=== PATIENT | male | born 1945 | race Caucasian/White ===

== ENCOUNTER 2017-10-28 13:00 | Emergency (ER) | payer OTHER ==
[~2017-10-28 13:00] MED LIST: ISOVUE-370 76%-LOCM 1 ML ONE
[2017-10-28] MEDS ORDERED: HYDROcodone/Acetaminophen 5/325 mg Tablet ONE (13:40)
[2017-10-28 14:35] LABS: #Eosinphils 0.2 thou/uL (0.0-0.7); #Monocytes 0.4 thou/uL (0.11-0.59); #Neutrophils 2.9 thou/uL (1.40-6.50); %Basophils 1.1 % (0.0-1.0); %Eosinophils 3.7 % (0.0-10.0); %Lymphocytes 22.1 % (21.0-51.0); %Monocytes 8.2 % (0.0-10.0); Hemoglobin 12.1 g/dL (14.0-18.0); Mean Corpuscular HGB CONC 34.3 g/dL (32.0-36.0); Mean Corpuscular Hemoglobin 30.1 pg (27.0-31.0); Mean Corpuscular Volume 87.9 fl (80.0-94.0); Mean Platelet Volume 8.2 fL (7.4-10.4); Platelet Count 158 thou/uL (130-400); RBC Distribution Width 12.2 % (11.5-14.5); White Blood Cell (WBC) Count 4.4 thou/uL (4.8-10.8)
[2017-10-28 14:58] LABS: ALT (SGPT) 15 U/L (8-55); AST (SGOT) 14 U/L (5-34); Albumin 3.6 g/dL (3.4-4.8); Alkaline Phosphatase 111 U/L (40-150); Anion Gap 9 mmol/L (10-20); BUN (Urea Nitrogen) 18 mg/dL (8.4-25.7); Bilirubin, Total 0.5 mg/dL (0.2-1.2); Calc. Creatinine Clearance 0 mL/min (70-130); Calcium 8.8 mg/dL (7.8-10.44); Carbon Dioxide 26 mmol/L (23-31); Chloride 106 mmol/L (98-107); Estimated GFR-MDRD 55; Globulin 2.8 g/dL (2.4-3.5); Glucose 128 mg/dL (83-110); Potassium 4.4 mmol/L (3.5-5.1); Protein, Total 6.4 g/dL (5.8-8.1); Sodium 137 mmol/L (136-145)
--- NOTE | 2017-10-28 15:56 | CT ---
POSTCONTRAST FACE CT: HISTORY: Tooth removed on 10/22. The patient reports pain and swelling. Evaluate for possible abscess. COMPARISON: None. TECHNIQUE: Face CT is performed in the axial plane. Reformatted images are submitted for interpretation. FINDINGS: The visualized brain parenchyma is unremarkable. No pathologic enhancement. Bilateral globes are in tact. Retrobulbar fat is preserved. Symmetric attenuation of the optic nerves and ocular rectus mus cles. There is extensive hypodensity involving the left and right ethmoid air cells and nasal cavity. Abno rmal hypodensity extends into both frontal sinuses. The cribiform plate appears to have erosive arellano ges versus demineralization. The aforementioned findings may be due to infectious, inflammatory proc ess. An underlying neoplastic process cannot be completely excluded. Obvious intracranial extension is not appreciated. Better interrogation with nonemergent brain MRI and ENT consultation is recomme nded. There is mucosal disease involving both maxillary sinuses. Pterygopalatine fossas are patent and symmetric. Visualized aerodigestive tract is patent. No mucos al abnormality. Midline fatty raphe of the tongue is preserved. There is no prevertebral soft tissu e swelling. Epiglottis has a normal caliber. Preepiglottic fat is preserved. Symmetric attenuation of the muscles of the mastication, submandibular glands, and parotid gland. No evidence of a soft tissue abscess. No significant induraiton or swelling of the facial soft tissu es. Mixed attenuation mass is noted posterior and lateral to the supraglottic larynx. Evaluation is inco mplete. There is evidence of absent multiple maxillary molar teeth. There is a small focus of air a a left m axillary molar tooth, like due to recent extraction. The air is in the socket and is presumed to be post operative. The mandibular teeth are intact. IMPRESSION: 1. No evidence of periapical abscess. No evidence of periodontal disease/periodontal abscess. No e vidence of soft tissue abscess. There is air in the left molar tooth socket and is presumed to be du e to recent extraction. 2. Heterogeneous mass, incompletely evaluated posterior and lateral to the supraglottic larynx. Non emergent postcontrast soft tissue neck CT is recommended. 3. Abnormal attenuation occupying the nasal cavity as above. There is possible demineralization phani kt erosion of the mid portion of the cribriform plates. Nonemergent MRI is recommended. Results of the study discussed with Xiao Cedeno, 10/28/17 at 3:39 p.m. CODE CR POS: KENYA
== END 2017-10-28 16:59 | disposition home or self-care (01) ==
LOC: ERS 13:00
DX: K08.89 Other specified disorders of teeth and supporting structures (principal); E11.9 Type 2 diabetes mellitus without complications; I10 Essential (primary) hypertension; Z87.891 Personal history of nicotine dependence; Z79.899 Other long term (current) drug therapy; Z79.82 Long term (current) use of aspirin
CPT/HCPCS: 36415; 70487; 80053; 85025

== ENCOUNTER 2017-12-06 07:33 | Outpatient (CLI) | payer OTHER ==
--- NOTE | 2017-12-06 08:33 | ULT ---
THYROID SONOGRAM: HISTORY: Neck mass. Thyromegaly. FINDINGS: Each thyroid lobe is 5.9 cm. The isthmus is 0.8 cm. There is marked heterogeneity of the entirety o f the thyroid gland. Multiple lobular complex masses are present throughout each thyroid lobe. On t he left, the largest is at the inferior pole measuring up to 3.3 cm. The largest on the right is at the superior pole measuring up to 1.8 cm. IMPRESSION: Multinodular goiter. POS: KENYA
== END 2017-12-06 07:34 | disposition home or self-care (01) ==
LOC: ULT 07:33
PROVIDERS: ATTEND Specialist
DX: E04.9 Nontoxic goiter, unspecified (principal); E04.2 Nontoxic multinodular goiter
CPT/HCPCS: 76536

== ENCOUNTER 2018-01-29 11:06 | Outpatient (CLI) | payer OTHER | END 2018-01-29 11:07 | disposition home or self-care (01) | LOC: BICRAD 11:06 | PROVIDERS: ATTEND Nurse Practitioner Family | DX: I27.20 Pulmonary hypertension, unspecified (principal) | CPT/HCPCS: 36415; 71046; 83520; 86038; 86200; 86225; 86235; 86256 ==

== ENCOUNTER 2018-02-18 12:33 | Outpatient (CLI) | payer OTHER ==
--- NOTE | 2018-02-18 15:06 | ULT ---
BILATERAL LOWER EXTREMITY VENOUS ULTRASOUND WITH DOPPLER 02/18/18 HISTORY: Varicose veins. COMPARISON: None. TECHNIQUE: Guardado scale, color flow, doppler imaging with spectral waveform analysis performed in the left and rig ht lower extremity venous system. FINDINGS: Bilaterally, there is compressibility, presence of flow and augmentation in the common femoral vein, femoral vein, and popliteal veins. There is flow in bilateral greater saphenous veins, profunda veins , and posterior tibial veins. IMPRESSION: No evidence of thrombus in the left or right lower extremity deep venous system. POS: KENYA
--- NOTE | 2018-02-21 09:54 | ULT ---
BILATERAL LOWER EXTREMITY ARTERIAL ULTRASOUND: Date: 02/18/18 Bilateral lower extremity arterial ultrasound was performed. On the right, femoral waveform is triphasic with good peak area under the curve. Popliteal and dispensary clerk ior tibial artery waveforms are triphasic with slight diminution in their waveforms peaks. Dorsalis p sincere waveform is back at a normal peaked waveform with triphasic wave. Ankle brachial index is 1.04. On the left, femoral, popliteal, dorsalis pedis, and posterior tibial artery waveforms are nicely pea ked with good peak area. Ankle brachial index is 0.95. ASSESSMENT: Mild SFA/popliteal disease on the right with normal ankle brachial index. Normal study on the left.
== END 2018-02-18 12:34 | disposition home or self-care (01) ==
LOC: ULT 12:33
PROVIDERS: ATTEND Internal Medicine
DX: I73.9 Peripheral vascular disease, unspecified (principal); I83.893 Varicose veins of bilateral lower extremities with other complications
CPT/HCPCS: 93922; 93970

== ENCOUNTER 2018-02-21 06:31 | Day surgery (SDC) | payer OTHER ==
[2018-02-20 11:17] VITALS: BMI 30.4
--- NOTE | 2018-02-21 02:31 | HP ---
SHORT STAY HISTORY AND PHYSICAL DATE OF ADMISSION: 02/21/2018 HISTORY OF PRESENT ILLNESS: Mr. Yvonne Bergman is a 72-year-old male referred in for colonoscopy for colon cancer screening. The patient has never had a colonoscopy. The patient has no specific GI symptoms. His bowel movement is regular. There is no history of rectal bleeding or melena. ALLERGIES: None. SOCIAL HISTORY: The patient is a former smoker. . Alcohol intake. MEDICAL ILLNESSES: 1. Bronchial asthma. 2. Benign prostatic hypertrophy. 3. Coronary artery disease, status post stent placement. 4. Obesity. 5. Hypertension. 6. Hyperlipidemia. 7. Diabetes. 8. Glaucoma. 9. Multinodular goiter. PHYSICAL EXAMINATION: GENERAL: Appears comfortable. VITAL SIGNS: Pulse is 70, blood pressure 130/70. HEENT: Conjunctivae clear. CARDIOVASCULAR SYSTEM: First and second heart sounds normal. LUNGS: Clear to auscultation. ABDOMEN: Soft to palpate. No organomegaly. No tenderness. No masses. ADMITTING DIAGNOSIS: A 72-year-old male with mild anemia. He has no upper GI symptoms. The patient comes for colonoscopy for colon cancer screening. GONZALEZ
--- NOTE | 2018-02-21 09:32 | OP ---
DATE OF PROCEDURE: 02/21/2018 SURGEON: Vanesa Renner M.D. OPERATIVE PROCEDURE: 1. Colonoscopy with polypectomy. 2. Colonoscopy with biopsy. PREOPERATIVE DIAGNOSES: A 72-year-old male with a mild anemia undergoing colonoscopy for colon cance r screening. POSTOPERATIVE DIAGNOSES: 1. Sessile cecal polyp removed with biopsy forceps. 2. A sessile distal transverse colon polyp close to the splenic flexure, status post snare cautery w ith good hemostasis. 3. Sessile sigmoid polyp, status post snare cautery with good hemostasis. 4. Sessile sigmoid polyp at 25 cm, status post snare cautery with good hemostasis. 5. Mild sigmoid diverticular disease. 6. Hemorrhoids. PROCEDURE IN DETAIL: The patient was placed on his left lateral position and was given sedation by A nesthesia Department. A rectal exam was done before the scope was advanced into the rectum. No othe r lesion felt on rectal exam. A Pentax video colonoscope was introduced into the rectum and advanced all the way into the cecum. The prep was good. The appendical orifice, ileocecal valve, no patholo gy. A 5 cm size sessile polyp cecum removed. The ascending colon, hepatic flexure, proximal transve rse colon, no pathology seen. Over the distal transverse colon close to splenic flexure the patient found to have a sessile polyp. This was removed with snare cautery with good hemostasis. There were 2 polyps in the sigmoid colon. Both were sessile and both were removed with snare cautery with good hemostasis. He also had mild sigmoid diverticular disease. Retroflexion of the scope in the rectum showed hemorrhoids. DISCHARGE PLANNING: A 72-year-old male who came for a colonoscopy for colon cancer screening. He un derwent polypectomy. There were 4 polyps removed. DISCHARGE RECOMMENDATIONS: 1. The patient was advised to call me if he develops abdominal pain, hematochezia or fever. 2. To come back to clinic in 2 weeks.
== END 2018-02-21 11:03 | disposition home or self-care (01) ==
LOC: SDC 06:31
PROVIDERS: ATTEND Internal Medicine Gastroenterology
PROC: 0DBH8ZX Excision of Cecum, Via Natural or Artificial Opening Endoscopic, Diagnostic (ICD-10-PCS; principal; 2018-02-21)
PROC: 0DBN8ZX Excision of Sigmoid Colon, Via Natural or Artificial Opening Endoscopic, Diagnostic (ICD-10-PCS; principal; 2018-02-21)
PROC: 0DBL8ZX Excision of Transverse Colon, Via Natural or Artificial Opening Endoscopic, Diagnostic (ICD-10-PCS; principal; 2018-02-21)
DX: D64.9 Anemia, unspecified (principal); D12.0 Benign neoplasm of cecum; D12.5 Benign neoplasm of sigmoid colon; D12.3 Benign neoplasm of transverse colon; K63.5 Polyp of colon; K57.30 Diverticulosis of large intestine without perforation or abscess without bleeding; K64.9 Unspecified hemorrhoids; J45.909 Unspecified asthma, uncomplicated; I25.10 Atherosclerotic heart disease of native coronary artery without angina pectoris; I10 Essential (primary) hypertension; E78.5 Hyperlipidemia, unspecified; E11.9 Type 2 diabetes mellitus without complications; E66.9 Obesity, unspecified; Z68.30 Body mass index [BMI] 30.0-30.9, adult; Z79.82 Long term (current) use of aspirin; Z79.84 Long term (current) use of oral hypoglycemic drugs; Z79.899 Other long term (current) drug therapy; Z95.5 Presence of coronary angioplasty implant and graft
CPT/HCPCS: 36416; 88305

== ENCOUNTER 2018-03-06 10:33 | Day surgery (SDC) | payer OTHER ==
[2018-03-05 11:19] VITALS: BMI 30.5
[2018-03-06] MEDS ORDERED: Oxymetazoline HCl 0.05% ( 15 ML ) ONE ×3 (11:44→15:52)
[2018-03-06 11:56] LABS: Hemoglobin 13.5 g/dL (14.0-18.0)
[2018-03-06] MEDS ORDERED: Fentanyl 100 MCG/2 ML VIAL ONE ×3 (12:16→13:57)
[2018-03-06] MEDS ORDERED: Lidocaine 1% w/Epinephrine 1:100K 30 ML VIAL ONE (12:17)
[2018-03-06 12:19] LABS: Anion Gap 10 mmol/L (10-20); BUN (Urea Nitrogen) 15 mg/dL (8.4-25.7); Calc. Creatinine Clearance 69 mL/min (70-130); Calcium 9.6 mg/dL (7.8-10.44); Carbon Dioxide 29 mmol/L (23-31); Chloride 103 mmol/L (98-107); Estimated GFR-MDRD 60; Glucose 173 mg/dL (83-110); Potassium 4.6 mmol/L (3.5-5.1); Sodium 137 mmol/L (136-145)
[2018-03-06] MEDS ORDERED: Albuterol Sulfate 2.5 mg/3 ml Neb ONE (12:28)
[2018-03-06] MEDS ORDERED: Albuterol Sulfate 1.25 MG/3 ML NEB NEB SCH (12:30)
[2018-03-06] MEDS ORDERED: methylPREDNISolone Acetate 40 mg/ml Vial ONE (12:58)
--- NOTE | 2018-03-06 13:37 | OP ---
DATE OF PROCEDURE: 03/06/2018 PREOPERATIVE DIAGNOSES: Nasal polyposis, allergic fungal sinusitis, deviated septum, hypertrophic in ferior turbinates. POSTOPERATIVE DIAGNOSES: Nasal polyposis, allergic fungal sinusitis, deviated septum, hypertrophic i nferior turbinates. PROCEDURES PERFORMED: 1. Bilateral nasal endoscopy with maxillary antrostomy with removal of tissue. 2. Bilateral nasal endoscopy with total ethmoidectomy. 3. Bilateral nasal endoscopy with frontal sinusotomy. 4. Bilateral nasal endoscopy with sphenoidotomy with removal of tissue. 5. Bilateral nasal endoscopy with nasal polypectomy. 6. Septoplasty. 7. Bilateral nasal endoscopy with submucosal resection of inferior turbinates. PROCEDURE IN DETAIL: After consent was obtained, the patient was identified, brought to the operatin g room, and placed on the operating room table in the supine position. Consent was obtained, notifyi ng the patient of the possibility of additional infections, bleeding, brain injury, and eye/orbital i njury. The patient was placed on the operating room table, and general endotracheal anesthesia and intravenous access was obtained. The patient was then positioned, prepped and draped for endoscopic sinus surgery. Nasal preparation included trimming nasal vestibular hairs and spraying in topical Af rin. We then placed Afrin topical solution on nasal pledgets and strategically located them intranas ally. The perinasal mucosa was injected with 1% lidocaine with 1:100,000 epinephrine in the submucop erichondrial plane of the septum, lateral nasal wall, and anterior to the uncinate. The patient was then prepped and draped in a sterile fashion and positioned for endoscopic sinus surgery. (Endoscopic Sinus Surgery) With the 0-degree endoscope, the patient underwent systematic nasal endoscopy. There were no suspici ous internasal masses or lesions identified. We then focused our attention to the osteomeatal comple x region under the middle turbinate. (Bernie Bullosa) The bernie bullosa was identified and entered with a sickle blade. The lateral aspect of the bernie bullosa was meticulously resected while leaving the medial most aspect t o form the new middle turbinate. Attention was made not to violate the mucosa. The straight biting punches and micro-debrider were used to remove shrouds of mucosa and bony debris. (Maxillary Antrostomy) The uncinate was then identified and the extent of the uncinate was appreciated by out-fracturing the uncinate with the ball-tip probe. We then used the sickle blade to disarticulate the uncinate from the lateral nasal wall. This was then removed with straight biting and upbiting punches with the remaining shrouds of mucosa and bony septum removed with the micro-debr ider. The natural os of the maxillary sinus was then identified and enlarged with the maxillary punc hes and back biting forceps. (Total Ethmoidectomy) The anterior face of the ethmoid bulla was entered and with the micro-debrider, dissection continued posteriorly to the ground lamella. The limits of dissection inc luded the insertion of the middle turbinate, medial orbital wall, and base of skull. We similarly id entified the frontal recess and removed shrouds of bone and debris in that region to obtain patency i nto the agger nasi region and frontal recess. We then entered the ground lamella and its anteroinfer ior aspect and proceeded posteriorly, opening the posterior ethmoid air-cell system. Again, the limi ts of dissection included the base of skull and medial orbital wall. (Sphenoidotomy) The anterior face of the sphenoid was identified and entered in its extreme anteroinferior aspect. A sphenoid punch was then used to enlarge the sphenoidotomy and no injury to the optic nerve or internal carotid artery occurred. (Outfracture of the Inferior Turbinates) The inferior turbinates were visualized under endoscopic visualization and outfractured with the elevator. The inferolateral edge of the inferior turbinate was then cauterized along its length with the suction cautery without difficulty. (Outfracture & Cautery of the Inferior Turbinates) The inferior turbinates were visualized with a 0-degree endoscope and outfractured with a [place] elevator. The inferior medial aspect was cauterized with the electrocauter y. Hemostasis was obtained . After adequate airway was established, we turned our attention to the contralateral side and used a similar procedure. Again, a Dolores elevator was used to outfracture inf erior turbinates under endoscopic visualization. With a suction cautery, the free inferior medial as pect was cauterized under direct visualization along the length of the inferior turbinate. (Septoplasty) After local anesthesia was infiltrated into the submucoperichondrial plane, a standard [place] incisi on was made with a #15 blade down to the level of the septal cartilage. The caudal elevator was used to elevate the mucoperichondrium from the underlying cartilage. We then proceeded beyond the bony c artilaginous junction and elevated the bony periosteum as well. Great attention was paid to the spur to prevent rent formation in the septal flap. A transcartilaginous incision was then made, while pre serving an adequate dorsal and caudal cartilaginous strut for tip support. The deformed cartilage wa s removed and disarticulated from the bony cartilaginous junction and maxillary crest. This was plac ed in saline and would later be crushed and returned to the mucoperichondrial envelope. We then elev ated the contralateral periosteum from the bony cartilaginous region and removed the deformed portion s of the bone and bony spurs. The cartilage was then crushed and placed back into the mucoperichondr ial envelope and the mucosa was re-approximated with a quilting stitch composed of rapidly absorbent gut suture. The Magdy incision was also closed with interrupted gut suture. At the completion of the case, Armstrong splints were placed and suture secured to the caudal septum. At this point, we then turned our attention to the contralateral side and proceeded with endoscopic sinus surgery. At the completion of the case, Rice keel splints were placed in the ethmoid cavities after the ethmoidectomy. There were no complications. The patient tolerated the procedure well and was discharged to the recovery room in stable condition prior to return to the preoperative Day Stay with ultimate discharge home. Prescriptions for pain medication and antibiotics were provid ed. The patient received intramuscular Depo-Medrol during the case.
[2018-03-06] MEDS ORDERED: Ondansetron HCl/PF 4 MG/2 ML Vial ONE (14:27)
[2018-03-06] MEDS ORDERED: Lidocaine 1% PF 5 ML VIAL ONE (14:27)
[2018-03-06] MEDS ORDERED: Succinylcholine Chloride 20 MG/ML 10 ml SYRINGE FS ONE (14:27)
[2018-03-06] MEDS ORDERED: Dexamethasone 20 MG/5 ML VIAL ONE (14:27)
[2018-03-06] MEDS ORDERED: PROPOFOL 200 MG/20 ML VIAL ONE (14:27)
[2018-03-06] MEDS ORDERED: HYDROcodone/Acetaminophen 5/325 mg Tablet ONE (15:03)
--- NOTE | 2018-03-09 20:55 | EKG ---
Test Reason : PREOP Blood Pressure : / mmHG Vent. Rate : 079 BPM Atrial Rate : 079 BPM P-R Int : 148 ms QRS Dur : 096 ms QT Int : 366 ms P-R-T Axes : 043 033 081 degrees QTc Int : 419 ms Normal sinus rhythm Normal ECG No previous ECGs available Confirmed by Willie CHAIDEZ ([id number]) on 03/09/2018 8:54:58 PM Referred By: RAFAELA Confirmed By:Willie CHAIDEZ
== END 2018-03-06 16:00 | disposition home or self-care (01) ==
LOC: SDC 10:33
PROVIDERS: ATTEND Specialist
PROC: 09TV8ZZ Resection of Left Ethmoid Sinus, Via Natural or Artificial Opening Endoscopic (ICD-10-PCS; principal; 2018-03-06)
PROC: 09TU8ZZ Resection of Right Ethmoid Sinus, Via Natural or Artificial Opening Endoscopic (ICD-10-PCS; principal; 2018-03-06)
PROC: 09SL8ZZ Reposition Nasal Turbinate, Via Natural or Artificial Opening Endoscopic (ICD-10-PCS; principal; 2018-03-06)
PROC: 09BR8ZZ Excision of Left Maxillary Sinus, Via Natural or Artificial Opening Endoscopic (ICD-10-PCS; principal; 2018-03-06)
PROC: 09SM0ZZ Reposition Nasal Septum, Open Approach (ICD-10-PCS; principal; 2018-03-06)
PROC: 099X8ZZ Drainage of Left Sphenoid Sinus, Via Natural or Artificial Opening Endoscopic (ICD-10-PCS; principal; 2018-03-06)
PROC: 09BQ8ZZ Excision of Right Maxillary Sinus, Via Natural or Artificial Opening Endoscopic (ICD-10-PCS; principal; 2018-03-06)
PROC: 099W8ZZ Drainage of Right Sphenoid Sinus, Via Natural or Artificial Opening Endoscopic (ICD-10-PCS; principal; 2018-03-06)
PROC: 09TL8ZZ Resection of Nasal Turbinate, Via Natural or Artificial Opening Endoscopic (ICD-10-PCS; principal; 2018-03-06)
DX: J32.9 Chronic sinusitis, unspecified (principal); J34.2 Deviated nasal septum; J34.3 Hypertrophy of nasal turbinates; J33.9 Nasal polyp, unspecified; J30.89 Other allergic rhinitis; I25.10 Atherosclerotic heart disease of native coronary artery without angina pectoris; I10 Essential (primary) hypertension; N40.0 Benign prostatic hyperplasia without lower urinary tract symptoms; J45.40 Moderate persistent asthma, uncomplicated; E11.9 Type 2 diabetes mellitus without complications; E04.9 Nontoxic goiter, unspecified; Z79.82 Long term (current) use of aspirin; Z79.84 Long term (current) use of oral hypoglycemic drugs; Z79.899 Other long term (current) drug therapy
CPT/HCPCS: 36415; 80048; 85014; 85018; 93005; 93010; 94640; J1030; J1100; J2001; J2405; J2704; J3010; J7611

== ENCOUNTER 2019-03-19 20:30 | Outpatient (CLI) | payer OTHER | END 2019-03-19 20:31 | disposition home or self-care (01) | LOC: SLEEPLAB 20:30 | PROVIDERS: ATTEND Internal Medicine | DX: G47.33 Obstructive sleep apnea (adult) (pediatric) (principal) | CPT/HCPCS: 95810 ==

== ENCOUNTER 2019-08-10 12:53 | Outpatient (CLI) | payer OTHER ==
--- NOTE | 2019-08-10 14:15 | ULT ---
RENAL ULTRASOUND WITH DUPLEX EVALUATION HISTORY: Chronic kidney disease stage III COMPARISON: None FINDINGS: Grayscale, color Doppler spectral Doppler images were obtained. Right Kidney: Size: 10.2 x 5.8 x 6.3. Right renal cortical thickness was 1.6 cm. Abnormality: There are multiple right renal cysts. When the largest cyst is seen measuring 5.5 cm lazaro ng its lateral margin. The right renal artery to aortic ratio is 2.5. The peak systolic velocity within the sampled right renal arteries 155.4 cm/s. Resistive index within the right arcuate artery w as 0.63. Left Kidney: Size: 12.0 x 5.5 x 4.1 cm and left renal cortical thickness was 1.8 cm. Abnormality: There is a 3 cm peripelvic cyst involving the superior pole of the left kidney. The left renal artery to aortic ratio is 2.2. Peak systolic velocity within the left main renal artery was 135.4 cm/s. Sample resistive index within the left renal arcuate artery 0.61. Urinary bladder: Not imaged Aorta: The peak systolic velocity within the abdominal aorta was 62 cm/s IMPRESSION: 1. Bilateral renal cysts. No hydronephrosis. 2. No sonographic evidence to suggest presence of renal artery stenosis.
--- NOTE | 2019-08-10 14:25 | ULT ---
Please see the separately dictated, concurrently performed renal ultrasound for details concerning th e ureteral duplex evaluation.
== END 2019-08-10 12:54 | disposition home or self-care (01) ==
LOC: ULT 12:53
PROVIDERS: ATTEND Family Medicine
DX: N18.3 Chronic kidney disease, stage 3 (moderate) (principal); N28.1 Cyst of kidney, acquired
CPT/HCPCS: 76770; 93975

== ENCOUNTER 2019-08-21 20:30 | Outpatient (CLI) | payer OTHER | END 2019-08-21 20:31 | disposition home or self-care (01) | LOC: SLEEPLAB 20:30 | PROVIDERS: ATTEND Internal Medicine | DX: G47.33 Obstructive sleep apnea (adult) (pediatric) (principal) | CPT/HCPCS: 95811 ==

== ENCOUNTER 2020-09-14 12:07 | Outpatient (CLI) | payer OTHER | END 2020-09-14 12:08 | disposition home or self-care (01) | LOC: ULT 12:07 | PROVIDERS: ATTEND Family Medicine | DX: I83.90 Asymptomatic varicose veins of unspecified lower extremity (principal); B33.24 Viral cardiomyopathy; I25.10 Atherosclerotic heart disease of native coronary artery without angina pectoris; I07.1 Rheumatic tricuspid insufficiency | CPT/HCPCS: 93306; 93880; 93970 ==

== ENCOUNTER 2020-11-03 14:40 | Outpatient (CLI) | payer OTHER | END 2020-11-03 14:41 | disposition home or self-care (01) | LOC: BICULT 14:40 | PROVIDERS: ATTEND Family Medicine | DX: E04.2 Nontoxic multinodular goiter (principal); E01.0 Iodine-deficiency related diffuse (endemic) goiter | CPT/HCPCS: 76536 ==

== ENCOUNTER 2020-11-14 09:53 | Outpatient (CLI) | payer OTHER ==
[2020-11-15 11:14] LABS: SARS-CoV-2 PCR by NAA Not Detected (NotDetected)
== END 2020-11-14 09:54 | disposition home or self-care (01) ==
LOC: LABBT 09:53
PROVIDERS: ATTEND Family Medicine
DX: Z01.812 Encounter for preprocedural laboratory examination (principal); Z20.822 Contact with and (suspected) exposure to COVID-19
CPT/HCPCS: U0003; U0005

== ENCOUNTER 2020-11-17 12:36 | Day surgery (SDC) | payer OTHER ==
[2020-11-15 13:41] VITALS: BMI 30.2
[2020-11-17] MEDS ORDERED: Lidocaine 1% PF 5 ML VIAL ONE (13:09)
[2020-11-17] MEDS ORDERED: Sodium Bicarbonate 2.5 MEQ/5 ML VIAL ONE (13:09)
[2020-11-17 14:24] VITALS: BP 133/47; TEMP 98.5
== END 2020-11-17 13:53 | disposition home or self-care (01) ==
LOC: ULT 12:36
PROVIDERS: ATTEND Family Medicine
PROC: 0GJK3ZZ Inspection of Thyroid Gland, Percutaneous Approach (ICD-10-PCS; principal; 2020-11-17)
PROC: BG44ZZZ Ultrasonography of Thyroid Gland (ICD-10-PCS; principal; 2020-11-17)
DX: E04.2 Nontoxic multinodular goiter (principal); G47.33 Obstructive sleep apnea (adult) (pediatric); J44.9 Chronic obstructive pulmonary disease, unspecified; E11.9 Type 2 diabetes mellitus without complications; I10 Essential (primary) hypertension; I25.10 Atherosclerotic heart disease of native coronary artery without angina pectoris; H40.9 Unspecified glaucoma; E78.5 Hyperlipidemia, unspecified; N40.0 Benign prostatic hyperplasia without lower urinary tract symptoms; J32.9 Chronic sinusitis, unspecified; L30.9 Dermatitis, unspecified; E66.9 Obesity, unspecified; Z68.30 Body mass index [BMI] 30.0-30.9, adult; Z79.82 Long term (current) use of aspirin; Z79.899 Other long term (current) drug therapy; Z87.891 Personal history of nicotine dependence; Z95.5 Presence of coronary angioplasty implant and graft
CPT/HCPCS: 60100; 76942; 88173

== ENCOUNTER 2021-05-31 12:29 | Inpatient (IN) | payer OTHER ==
[~2021-05-31 12:29] MED LIST changes: -ISOVUE-370 76%-LOCM 1 ML ONE; +Iopamidol 370 76% 100 ML VIAL ONE; +Iopamidol 370 76% 50 ML VIAL FS ONE; +Nitroglycerin 50 MG/250 ML BOT ONE; +Rocuronium Bromide 10 MG/ML (10ML VIAL) ONE
[2021-05-31 14:03] LABS: #Eosinphils 0.2 thou/uL (0.0-0.7); #Lymphocytes 0.5 thou/uL (1.20-3.40); #Monocytes 0.4 thou/uL (0.11-0.59); #Neutrophils 6.1 thou/uL (1.40-6.50); %Basophils 0.5 % (0.0-1.0); %Eosinophils 3.4 % (0.0-10.0); %Lymphocytes 6.8 % (21.0-51.0); %Monocytes 5.7 % (0.0-10.0); %Neutrophils 83.5 % (42.0-75.0); Hemoglobin 12.5 g/dL (14.0-18.0); Mean Corpuscular HGB CONC 34.7 g/dL (32.0-36.0); Mean Corpuscular Hemoglobin 31.7 pg (27.0-31.0); Mean Corpuscular Volume 91.5 fL (78.0-98.0); Mean Platelet Volume 7.8 fL (7.4-10.4); Platelet Count 169 thou/uL (130-400); RBC Distribution Width 11.5 % (11.5-14.5); Red Blood Cell (RBC) Count 3.93 mill/uL (4.70-6.10); White Blood Cell (WBC) Count 7.3 thou/uL (4.8-10.8)
[2021-05-31 14:25] LABS: ALT (SGPT) 30 U/L (8-55); AST (SGOT) 19 U/L (5-34); Albumin 3.6 g/dL (3.4-4.8); Alkaline Phosphatase 117 U/L (40-110); Anion Gap 13 mmol/L (10-20); BUN (Urea Nitrogen) 12 mg/dL (8.4-25.7); Bilirubin, Total 0.5 mg/dL (0.2-1.2); Calc. Creatinine Clearance 0 mL/min (70-130); Calcium 9.3 mg/dL (7.8-10.44); Carbon Dioxide 26 mmol/L (23-31); Chloride 100 mmol/L (98-107); Globulin 3.5 g/dL (2.4-3.5); Glucose 342 mg/dL (83-110); Lipase 18 U/L (8-78); Potassium 4.5 mmol/L (3.5-5.1); Protein, Total 7.1 g/dL (5.8-8.1); Sodium 134 mmol/L (136-145)
[2021-05-31 14:49] LABS: CKMB 1.6 ng/mL (0-6.6)
[2021-05-31] MEDS ORDERED: Aspirin Chewable 81 MG TAB ONE (16:35)
[2021-05-31] MEDS ORDERED: Nitroglycerin 2% Ointment 1 INCH/1 GM Packet ONE (16:35)
[2021-05-31 17:15] LABS: Troponin I 0.308 ng/mL (< 0.028)
[2021-05-31] MEDS ORDERED: Enoxaparin Sodium 80 MG/0.8 ML SYRINGE ONE (17:19)
[2021-05-31] MEDS ORDERED: Heparin 10,000 UNITS/ 10 ML VIAL ONE ×2 (18:16→19:50)
[2021-05-31] MEDS ORDERED: Fentanyl 100 MCG/2 ML VIAL ONE (18:39)
[2021-05-31] MEDS ORDERED: Nitroglycerin 100MG/250ML BOT 0 ML ONE (19:04)
[2021-05-31] MEDS ORDERED: Nitroglycerin 100MG/250ML BOT 250 ML ONE (19:05)
[2021-05-31] MEDS ORDERED: Adenosine 6 MG/2 ML VIAL ONE (19:07)
[2021-05-31] MEDS ORDERED: Fentanyl 250 MCG/5 ML VIAL ONE ×2 (19:55)
[2021-05-31] MEDS ORDERED: Midazolam HCl 5 mg/5 ml Vial ONE (19:55)
[2021-05-31] MEDS ORDERED: Dexmedetomidine 200 MCG/2 ML VIAL ONE (19:56)
[2021-05-31] MEDS ORDERED: Aminocaproic Acid 5 GM/20 ML VIAL ONE ×2 (19:56→20:22)
[2021-05-31] MEDS ORDERED: EPINEPHrine 1 MG/ML AMP ONE (20:08)
[2021-05-31] MEDS ORDERED: Dexamethasone 4 mg/ml Vial ONE (20:08)
[2021-05-31] MEDS ORDERED: Bupivacaine PF 0.5% 30 ML VIAL ONE (20:08)
[2021-05-31] MEDS ORDERED: Ondansetron PF 4 MG/2 ML Vial ONE (20:22)
[2021-05-31] MEDS ORDERED: Calcium Chloride 1 GM/10 ML Abboject SYRINGE ONE (20:22)
[2021-05-31] MEDS ORDERED: Lidocaine 2% PF 100 mg/5 ml Syringe ONE (20:22)
[2021-05-31] MEDS ORDERED: Heparin 5,000 UNITS/ML VIAL ONE (20:22)
[2021-05-31] MEDS ORDERED: Metoprolol Tartrate 5 MG/5 ML VIAL ONE (20:22)
[2021-05-31] MEDS ORDERED: Magnesium Sulfate 1 GM/2 ML VIAL ONE (20:22)
[2021-05-31] MEDS ORDERED: Lidocaine 1% PF 5 ML VIAL ONE ×2 (20:22)
[2021-05-31] MEDS ORDERED: Thrombin 5000 UNITS/5 ML VIAL ONE (20:22)
[2021-05-31] MEDS ORDERED: Rocuronium Bromide 10 MG/ML (10ML VIAL) ONE (20:22)
[2021-05-31] MEDS ORDERED: Sodium Bicarb 50 MEQ/50 ML Abboject 8.4% SYRINGE ONE (20:22)
[2021-05-31] MEDS ORDERED: Potassium Chloride 60 MEQ/30 ML VIAL ONE (20:22)
[2021-05-31] MEDS ORDERED: Phenylephrine 10 MG/ML VIAL ONE (20:22)
[2021-05-31] MEDS ORDERED: Heparin 30,000 units/30 ml VIAL ONE (20:22)
[2021-05-31] MEDS ORDERED: Cardioplegic Soln 1,000 ML BAG ONE (20:22)
[2021-05-31] MEDS ORDERED: PROPOFOL 200 MG/20 ML VIAL ONE (20:22)
[2021-05-31 20:33] LABS: Troponin I 1.665 ng/mL (< 0.028)
[2021-05-31] MEDS ORDERED: PHENYLEPHRINE-NS 100 MCG/ML 10 ML SYRINGE ONE (21:09)
[2021-05-31] MEDS ORDERED: Insulin Regular 300 UNITS/3 ML VIAL ONE (21:14)
[2021-05-31] MEDS ORDERED: Nitroglycerin 50 MG/250 ML BOT 0 ML ONE (22:18)
[2021-05-31] MEDS ORDERED: Propofol 1,000 MG/100 ML VIAL IV ONE (22:54)
[2021-05-31] MEDS ORDERED: Mag-Al 1200 mg/1200 mg/30 ML UDCUP PO PRN (23:03)
[2021-05-31] MEDS ORDERED: Ondansetron PF 4 MG/2 ML Vial IVP PRN (23:03)
[2021-05-31] MEDS ORDERED: traMADol HCl 50 MG TAB PO PRN (23:03)
[2021-05-31] MEDS ORDERED: Nitroglycerin 50 MG/250 ML BOT 250 ML IVPB PRN (23:03)
[2021-05-31] MEDS ORDERED: Bisacodyl 10 MG SUPP PR PRN (23:03)
[2021-05-31] MEDS ORDERED: Norepinephrine 8 MG/0.9% NS 250 ML IVPB PRN (23:03)
[2021-05-31] MEDS ORDERED: niCARdipine 25 MG in Sodium Chloride 0.9% 250 ML 250 ML IVPB PRN (23:03)
[2021-05-31] MEDS ORDERED: Morphine 2 MG/ML VIAL SLOW IVP PRN (23:03)
[2021-05-31] MEDS ORDERED: Hetastarch 6% 500 ML 500 ML IVPB PRN (23:03)
[2021-05-31] MEDS ORDERED: Acetaminophen 325 MG TAB PO PRN (23:03)
[2021-05-31] MEDS ORDERED: Potassium Chloride 20 MEQ/100 ML PREMIX BAG IVPB PRN (23:03)
[2021-05-31 23:16] LABS: Actual Bicarbonate (HCO3a) 24.4 mEq/L (22-28); Base Excess (BEa) -0.9 mEq/L (-2.0 to +3.0); Calcium, Ionized (arterial) 1.13 mmol/L (1.12-1.30); Carboxyhemoglobin (COHb) 0.3 gm% (0.0-3.0); Hemoglobin (Hb) 9.9 g/dL (14.0-18.0); Potassium - ABG Lab 4.28 mmol/L (3.70-5.30); pH, Arterial 7.37 (7.35-7.45)
[2021-05-31 23:20] LABS: O2 Tension (PaO2), arterial 501.8 mmHg (> 70.0)
[2021-05-31 23:21] LABS: Puncture Site LINE
[2021-05-31] MEDS ORDERED: Morphine 4 MG/ML VIAL SLOW IVP PRN (23:30)
[2021-05-31] MEDS ORDERED: Magnesium 2 GM/50 ML 2 GM in Premix Bag 1 BAG IVPB SCH (23:30)
[2021-05-31] MEDS ORDERED: D5 1/2 NS w/20 mEq KCL 1,000 ML IV SCH (23:30)
[2021-05-31 23:32] LABS: #Eosinphils 0.2 thou/uL (0.0-0.7); #Lymphocytes 0.9 thou/uL (1.20-3.40); #Monocytes 0.6 thou/uL (0.11-0.59); #Neutrophils 9.4 thou/uL (1.40-6.50); %Basophils 0.2 % (0.0-1.0); %Eosinophils 1.6 % (0.0-10.0); %Monocytes 5.7 % (0.0-10.0); %Neutrophils 84.5 % (42.0-75.0); Hemoglobin 9.3 g/dL (14.0-18.0); Mean Corpuscular Hemoglobin 31.9 pg (27.0-31.0); Mean Corpuscular Volume 91.2 fL (78.0-98.0); Mean Platelet Volume 7.7 fL (7.4-10.4); Platelet Count 144 thou/uL (130-400); RBC Distribution Width 11.6 % (11.5-14.5); Red Blood Cell (RBC) Count 2.91 mill/uL (4.70-6.10); White Blood Cell (WBC) Count 11.1 thou/uL (4.8-10.8)
[2021-05-31] MEDS: Ketorolac Tromethamine 30 MG/ML VIAL IVP SCH (23:37)
[2021-05-31 23:42] LABS: INR-International Normal Ratio 1.4; PTT 37.2 sec (22.9-36.1); Prothrombin Time 17.5 sec (12.0-14.7)
[2021-05-31] MEDS: Insulin Regular 300 UNITS/3 ML VIAL SC PRN (23:43)
[2021-05-31 23:53] LABS: Anion Gap 8 mmol/L (10-20); BUN (Urea Nitrogen) 10 mg/dL (8.4-25.7); Calc. Creatinine Clearance 0 mL/min (70-130); Calcium 7.8 mg/dL (7.8-10.44); Carbon Dioxide 24 mmol/L (23-31); Chloride 108 mmol/L (98-107); Glucose 201 mg/dL (83-110); Potassium 4.4 mmol/L (3.5-5.1); Sodium 136 mmol/L (136-145)
[2021-06-01 00:59] LABS: SARS-CoV-2 NAA Rapid Test Not Detected (NotDetected)
[2021-06-01 01:39] LABS: Actual Bicarbonate (HCO3a) 21.4 mEq/L (22-28); Base Excess (BEa) -4.4 mEq/L (-2.0 to +3.0); CO2 Tension 42.1 mmHg (35.0-45.0); Calcium, Ionized (arterial) 1.13 mmol/L (1.12-1.30); Carboxyhemoglobin (COHb) 0.3 gm% (0.0-3.0); Hemoglobin (Hb) 10.3 g/dL (14.0-18.0); O2 Tension (PaO2), arterial 152.6 mmHg (> 70.0); Potassium - ABG Lab 5.15 mmol/L (3.70-5.30); pH, Arterial 7.32 (7.35-7.45)
[2021-06-01 01:40] LABS: Puncture Site LINE
[2021-06-01 01:41] LABS: ALV-art Gradient 79.975 mmHg (0-20)
[2021-06-01] MEDS: Fentanyl 100 MCG/2 ML VIAL SLOW IVP PRN ×3 (01:53→20:44)
[2021-06-01] MEDS: ceFAZolin Sodium/D5W 2 GM in Premix Bag 1 BAG IVPB SCH ×3 (03:43→20:44)
[2021-06-01] MEDS: Insulin Regular 300 UNITS/3 ML VIAL SC PRN (04:19)
[2021-06-01 04:20] LABS: #Lymphocytes 0.4 thou/uL (1.20-3.40); #Monocytes 0.5 thou/uL (0.11-0.59); #Neutrophils 10.6 thou/uL (1.40-6.50); %Eosinophils 0.3 % (0.0-10.0); %Lymphocytes 3.1 % (21.0-51.0); %Monocytes 3.9 % (0.0-10.0); %Neutrophils 92.7 % (42.0-75.0); Hemoglobin 8.5 g/dL (14.0-18.0); Mean Corpuscular HGB CONC 34.3 g/dL (32.0-36.0); Mean Corpuscular Hemoglobin 31.7 pg (27.0-31.0); Mean Corpuscular Volume 92.5 fL (78.0-98.0); Mean Platelet Volume 7.5 fL (7.4-10.4); Platelet Count 133 thou/uL (130-400); RBC Distribution Width 11.5 % (11.5-14.5); Red Blood Cell (RBC) Count 2.68 mill/uL (4.70-6.10); White Blood Cell (WBC) Count 11.4 thou/uL (4.8-10.8)
[2021-06-01 04:45] LABS: Anion Gap 11 mmol/L (10-20); BUN (Urea Nitrogen) 15 mg/dL (8.4-25.7); Calc. Creatinine Clearance 73 mL/min (70-130); Carbon Dioxide 23 mmol/L (23-31); Chloride 105 mmol/L (98-107); Glucose 337 mg/dL (83-110); Potassium 5.1 mmol/L (3.5-5.1); Sodium 134 mmol/L (136-145)
[2021-06-01] MEDS: traMADol HCl 50 MG TAB PO PRN ×2 (04:46→17:03)
[2021-06-01] MEDS: Mometasone 100 MCG/PUFF (1 INHALER) INH SCH ×2 (07:08→19:32)
[2021-06-01] MEDS ORDERED: Aspirin 325 MG TAB PO SCH (08:00)
[2021-06-01] MEDS: HUMULIN R 100 UNITS in Sodium Chloride 0.9% 100 ML IVPB SCH (08:23)
[2021-06-01] MEDS: Cholecalciferol 1,000 UNITS (25 MCG) TAB PO SCH (08:45)
[2021-06-01] MEDS: Tamsulosin HCl 0.4 MG CAP PO SCH (08:47)
[2021-06-01] MEDS: Finasteride 5 MG TAB PO SCH (08:47)
[2021-06-01] MEDS: Magnesium 2 GM/50 ML 2 GM in Premix Bag 1 BAG IVPB SCH (08:48)
[2021-06-01] MEDS ORDERED: Famotidine/PF 20 mg/2ml Vial SLOW IVP SCH (09:00)
[2021-06-01] MEDS: Ketorolac Tromethamine 30 MG/ML VIAL IVP SCH ×3 (12:15→18:33)
[2021-06-01] MEDS: Latanoprost 0.005% Ophth Soln 2.5 ml Bottle EA EYE SCH (20:44)
[2021-06-01] MEDS: Atorvastatin Calcium 40 MG TAB PO SCH (20:44)
[2021-06-02] MEDS: HUMULIN R 100 UNITS in Sodium Chloride 0.9% 100 ML IVPB SCH (00:08)
[2021-06-02] MEDS: Ketorolac Tromethamine 30 MG/ML VIAL IVP SCH ×2 (00:09→05:20)
[2021-06-02] MEDS: Fentanyl 100 MCG/2 ML VIAL SLOW IVP PRN ×2 (04:15→22:31)
[2021-06-02 04:48] LABS: #Lymphocytes 0.9 thou/uL (1.20-3.40); #Neutrophils 8.3 thou/uL (1.40-6.50); %Basophils 0.1 % (0.0-1.0); %Eosinophils 0.3 % (0.0-10.0); %Lymphocytes 9.1 % (21.0-51.0); %Monocytes 9.8 % (0.0-10.0); %Neutrophils 80.8 % (42.0-75.0); Hemoglobin 7.1 g/dL (14.0-18.0); Mean Corpuscular HGB CONC 34.7 g/dL (32.0-36.0); Mean Corpuscular Hemoglobin 31.9 pg (27.0-31.0); Mean Corpuscular Volume 91.8 fL (78.0-98.0); Mean Platelet Volume 7.9 fL (7.4-10.4); Platelet Count 198 thou/uL (130-400); RBC Distribution Width 11.6 % (11.5-14.5); Red Blood Cell (RBC) Count 2.21 mill/uL (4.70-6.10); White Blood Cell (WBC) Count 10.3 thou/uL (4.8-10.8)
[2021-06-02 05:00] LABS: Anion Gap 10 mmol/L (10-20); BUN (Urea Nitrogen) 27 mg/dL (8.4-25.7); Calc. Creatinine Clearance 40 mL/min (70-130); Calcium 8.1 mg/dL (7.8-10.44); Carbon Dioxide 23 mmol/L (23-31); Chloride 107 mmol/L (98-107); Glucose 135 mg/dL (83-110); Potassium 3.5 mmol/L (3.5-5.1); Sodium 136 mmol/L (136-145)
[2021-06-02] MEDS: Mometasone 100 MCG/PUFF (1 INHALER) INH SCH ×2 (07:20→18:53)
[2021-06-02] MEDS: Bupropion 150 MG XL TAB PO SCH (08:11)
[2021-06-02] MEDS: Clopidogrel Bisulfate 75 MG TAB PO SCH (08:11)
[2021-06-02] MEDS: Ezetimibe 10 MG TAB PO SCH (08:11)
[2021-06-02] MEDS: Aspirin Chewable 81 MG TAB PO SCH (08:11)
[2021-06-02] MEDS: Alogliptin 6.25 MG TAB PO SCH (08:12)
[2021-06-02] MEDS: Finasteride 5 MG TAB PO SCH (08:12)
[2021-06-02] MEDS: Tamsulosin HCl 0.4 MG CAP PO SCH (08:12)
[2021-06-02] MEDS: Magnesium 2 GM/50 ML 2 GM in Premix Bag 1 BAG IVPB SCH (08:13)
[2021-06-02] MEDS: Cholecalciferol 1,000 UNITS (25 MCG) TAB PO SCH (08:34)
[2021-06-02] MEDS: Insulin Regular 300 UNITS/3 ML VIAL SC PRN ×4 (08:34→20:37)
[2021-06-02] MEDS ORDERED: (Liraglutide [Victoza 3-Pak] 0.6 MG/0.1 ML Pen.Injctr) SC SCH (09:00)
[2021-06-02] MEDS: Atorvastatin Calcium 40 MG TAB PO SCH (20:30)
[2021-06-02] MEDS: traMADol HCl 50 MG TAB PO PRN (20:31)
[2021-06-02] MEDS: Bisacodyl 5 MG TAB PO PRN (20:32)
[2021-06-02] MEDS: Latanoprost 0.005% Ophth Soln 2.5 ml Bottle EA EYE SCH (20:34)
[2021-06-02] MEDS: Guaifenesin DM 100-10/5 ML UDCUP PO PRN (22:54)
[2021-06-03] MEDS: Insulin Regular 300 UNITS/3 ML VIAL SC PRN ×5 (00:10→22:46)
[2021-06-03 04:47] LABS: Anion Gap 8 mmol/L (10-20); BUN (Urea Nitrogen) 29 mg/dL (8.4-25.7); Calc. Creatinine Clearance 52 mL/min (70-130); Calcium 8.2 mg/dL (7.8-10.44); Carbon Dioxide 23 mmol/L (23-31); Chloride 103 mmol/L (98-107); Glucose 197 mg/dL (83-110); Potassium 4.1 mmol/L (3.5-5.1); Sodium 130 mmol/L (136-145)
[2021-06-03 04:52] LABS: #Lymphocytes 0.7 thou/uL (1.20-3.40); #Monocytes 0.7 thou/uL (0.11-0.59); #Neutrophils 6.8 thou/uL (1.40-6.50); %Basophils 0.3 % (0.0-1.0); %Eosinophils 0.5 % (0.0-10.0); %Lymphocytes 8.2 % (21.0-51.0); %Monocytes 8.7 % (0.0-10.0); %Neutrophils 82.3 % (42.0-75.0); Hemoglobin 7.9 g/dL (14.0-18.0); Mean Corpuscular HGB CONC 33.7 g/dL (32.0-36.0); Mean Platelet Volume 8.1 fL (7.4-10.4); Platelet Count 144 thou/uL (130-400); RBC Distribution Width 11.8 % (11.5-14.5); Red Blood Cell (RBC) Count 2.54 mill/uL (4.70-6.10); White Blood Cell (WBC) Count 8.2 thou/uL (4.8-10.8)
[2021-06-03] MEDS: Mometasone 100 MCG/PUFF (1 INHALER) INH SCH ×2 (06:46→23:58)
[2021-06-03] MEDS ORDERED: FLU VACC QS2021-22(65YR UP)/PF 240 MCG/0.7 ML SYRINGE IM ONE (09:00)
[2021-06-03] MEDS: Aspirin Chewable 81 MG TAB PO SCH (09:35)
[2021-06-03] MEDS: Finasteride 5 MG TAB PO SCH (09:35)
[2021-06-03] MEDS: Bupropion 150 MG XL TAB PO SCH (09:35)
[2021-06-03] MEDS: Clopidogrel Bisulfate 75 MG TAB PO SCH (09:36)
[2021-06-03] MEDS: Ezetimibe 10 MG TAB PO SCH (09:36)
[2021-06-03] MEDS: Alogliptin 6.25 MG TAB PO SCH (09:37)
[2021-06-03] MEDS: Bisacodyl 5 MG TAB PO PRN (10:06)
[2021-06-03] MEDS: Cholecalciferol 1,000 UNITS (25 MCG) TAB PO SCH (10:07)
[2021-06-03] MEDS: Tamsulosin HCl 0.4 MG CAP PO SCH (10:16)
[2021-06-03 12:23] VITALS: BMI 30.5
[2021-06-03] MEDS: Guaifenesin DM 100-10/5 ML UDCUP PO PRN (13:23)
[2021-06-03] MEDS ORDERED: Guaifenesin DM 100-10/5 ML UDCUP PO PRN (14:29)
[2021-06-03] MEDS ORDERED: Mag-Al 1200 mg/1200 mg/30 ML UDCUP PO PRN (14:29)
[2021-06-03] MEDS ORDERED: Bisacodyl 5 MG TAB PO PRN (14:29)
[2021-06-03] MEDS ORDERED: Mineral Oil ENEMA PR PRN (14:29)
[2021-06-03] MEDS ORDERED: Zolpidem Tartrate 5 MG TAB PO PRN (14:29)
[2021-06-03] MEDS ORDERED: Nitroglycerin 0.4 MG TAB (25 Tab Bottle) SL PRN (14:29)
[2021-06-03] MEDS ORDERED: Bisacodyl 10 MG SUPP PR PRN (14:29)
[2021-06-03] MEDS: traMADol HCl 50 MG TAB PO PRN (16:45)
[2021-06-03] MEDS: Latanoprost 0.005% Ophth Soln 2.5 ml Bottle EA EYE SCH (21:43)
[2021-06-03] MEDS: Atorvastatin Calcium 40 MG TAB PO SCH (21:44)
[2021-06-03] MEDS: diphenhydrAMINE 25 MG CAP PO PRN (21:44)
[2021-06-03] MEDS: Milk Of Magnesia 30 ML UDCUP PO PRN (21:52)
[2021-06-04 05:22] LABS: Anion Gap 8 mmol/L (10-20); BUN (Urea Nitrogen) 20 mg/dL (8.4-25.7); Calc. Creatinine Clearance 68 mL/min (70-130); Calcium 8.4 mg/dL (7.8-10.44); Carbon Dioxide 27 mmol/L (23-31); Chloride 103 mmol/L (98-107); Glucose 184 mg/dL (83-110); Potassium 4.7 mmol/L (3.5-5.1); Sodium 133 mmol/L (136-145)
[2021-06-04] MEDS: Mometasone 100 MCG/PUFF (1 INHALER) INH SCH ×2 (08:22→18:58)
[2021-06-04] MEDS: Ezetimibe 10 MG TAB PO SCH (10:52)
[2021-06-04] MEDS: Bupropion 150 MG XL TAB PO SCH (10:52)
[2021-06-04] MEDS: Clopidogrel Bisulfate 75 MG TAB PO SCH (10:53)
[2021-06-04] MEDS: Cholecalciferol 1,000 UNITS (25 MCG) TAB PO SCH (10:53)
[2021-06-04] MEDS: Potassium Chloride 10 MEQ TAB PO SCH (10:53)
[2021-06-04] MEDS: Aspirin Chewable 81 MG TAB PO SCH (10:53)
[2021-06-04] MEDS: Alogliptin 6.25 MG TAB PO SCH (10:53)
[2021-06-04] MEDS: Furosemide 40 MG TAB PO SCH (10:53)
[2021-06-04] MEDS: Finasteride 5 MG TAB PO SCH (10:53)
[2021-06-04] MEDS: Tamsulosin HCl 0.4 MG CAP PO SCH (10:54)
[2021-06-04] MEDS: Bisacodyl 5 MG TAB PO PRN (11:14)
[2021-06-04] MEDS: Milk Of Magnesia 30 ML UDCUP PO PRN (17:23)
[2021-06-04] MEDS: Insulin Regular 300 UNITS/3 ML VIAL SC PRN ×2 (18:36→21:44)
[2021-06-04] MEDS: Latanoprost 0.005% Ophth Soln 2.5 ml Bottle EA EYE SCH (21:42)
[2021-06-04] MEDS: Atorvastatin Calcium 40 MG TAB PO SCH (21:44)
[2021-06-04] MEDS: diphenhydrAMINE 25 MG CAP PO PRN (23:12)
[2021-06-05] MEDS: Guaifenesin DM 100-10/5 ML UDCUP PO PRN (02:40)
[2021-06-05] MEDS: traMADol HCl 50 MG TAB PO PRN (02:53)
[2021-06-05 05:46] LABS: Anion Gap 12 mmol/L (10-20); BUN (Urea Nitrogen) 28 mg/dL (8.4-25.7); Calc. Creatinine Clearance 59 mL/min (70-130); Calcium 8.9 mg/dL (7.8-10.44); Carbon Dioxide 25 mmol/L (23-31); Chloride 100 mmol/L (98-107); Glucose 211 mg/dL (83-110); Potassium 4.6 mmol/L (3.5-5.1); Sodium 132 mmol/L (136-145)
[2021-06-05] MEDS: Insulin Regular 300 UNITS/3 ML VIAL SC PRN ×2 (07:23→21:25)
[2021-06-05] MEDS: Mometasone 100 MCG/PUFF (1 INHALER) INH SCH ×2 (08:02→19:12)
[2021-06-05] MEDS: Ezetimibe 10 MG TAB PO SCH (10:25)
[2021-06-05] MEDS: Cholecalciferol 1,000 UNITS (25 MCG) TAB PO SCH (10:25)
[2021-06-05] MEDS: Finasteride 5 MG TAB PO SCH (10:25)
[2021-06-05] MEDS: Potassium Chloride 10 MEQ TAB PO SCH (10:26)
[2021-06-05] MEDS: Tamsulosin HCl 0.4 MG CAP PO SCH (10:26)
[2021-06-05] MEDS: Carvedilol 3.125 MG TAB PO SCH ×2 (10:26→17:16)
[2021-06-05] MEDS: Aspirin Chewable 81 MG TAB PO SCH (10:26)
[2021-06-05] MEDS: Furosemide 40 MG TAB PO SCH (10:26)
[2021-06-05] MEDS: Alogliptin 6.25 MG TAB PO SCH (10:26)
[2021-06-05] MEDS: Clopidogrel Bisulfate 75 MG TAB PO SCH (10:27)
[2021-06-05] MEDS: Bupropion 150 MG XL TAB PO SCH (10:27)
[2021-06-05] MEDS: Atorvastatin Calcium 40 MG TAB PO SCH (21:24)
[2021-06-05] MEDS: Latanoprost 0.005% Ophth Soln 2.5 ml Bottle EA EYE SCH (21:25)
[2021-06-06] MEDS: traMADol HCl 50 MG TAB PO PRN (00:15)
[2021-06-06 04:44] LABS: Anion Gap 8 mmol/L (10-20); BUN (Urea Nitrogen) 26 mg/dL (8.4-25.7); Calc. Creatinine Clearance 60 mL/min (70-130); Calcium 8.7 mg/dL (7.8-10.44); Carbon Dioxide 29 mmol/L (23-31); Chloride 99 mmol/L (98-107); Glucose 158 mg/dL (83-110); Potassium 4.3 mmol/L (3.5-5.1); Sodium 132 mmol/L (136-145)
[2021-06-06] MEDS: Mometasone 100 MCG/PUFF (1 INHALER) INH SCH ×2 (07:56→18:41)
[2021-06-06] MEDS: Aspirin Chewable 81 MG TAB PO SCH (08:52)
[2021-06-06] MEDS: Bupropion 150 MG XL TAB PO SCH (08:52)
[2021-06-06] MEDS: Alogliptin 6.25 MG TAB PO SCH (08:53)
[2021-06-06] MEDS: Furosemide 40 MG TAB PO SCH (08:53)
[2021-06-06] MEDS: Cholecalciferol 1,000 UNITS (25 MCG) TAB PO SCH (08:53)
[2021-06-06] MEDS: Potassium Chloride 10 MEQ TAB PO SCH (08:53)
[2021-06-06] MEDS: Finasteride 5 MG TAB PO SCH (08:53)
[2021-06-06] MEDS: Clopidogrel Bisulfate 75 MG TAB PO SCH (08:53)
[2021-06-06] MEDS: Tamsulosin HCl 0.4 MG CAP PO SCH (08:53)
[2021-06-06] MEDS: Carvedilol 3.125 MG TAB PO SCH (08:54)
[2021-06-06] MEDS: Ezetimibe 10 MG TAB PO SCH (08:54)
[2021-06-06] MEDS ORDERED: (Liraglutide [Victoza 3-Pak] 0.6 MG/0.1 ML Pen.Injctr) SC SCH (09:00)
[2021-06-06] MEDS: Insulin Regular 300 UNITS/3 ML VIAL SC PRN ×3 (11:51→22:01)
[2021-06-06 17:51] LABS: #Eosinphils 0.4 thou/uL (0.0-0.7); #Lymphocytes 0.7 thou/uL (1.20-3.40); #Monocytes 0.9 thou/uL (0.11-0.59); #Neutrophils 7.2 thou/uL (1.40-6.50); %Basophils 0.3 % (0.0-1.0); %Eosinophils 3.9 % (0.0-10.0); %Lymphocytes 7.9 % (21.0-51.0); %Monocytes 9.7 % (0.0-10.0); %Neutrophils 78.3 % (42.0-75.0); Hemoglobin 8.1 g/dL (14.0-18.0); Mean Corpuscular HGB CONC 34.4 g/dL (32.0-36.0); Mean Corpuscular Hemoglobin 32.1 pg (27.0-31.0); Mean Corpuscular Volume 93.1 fL (78.0-98.0); Mean Platelet Volume 7.2 fL (7.4-10.4); Platelet Count 229 thou/uL (130-400); RBC Distribution Width 12.3 % (11.5-14.5); Red Blood Cell (RBC) Count 2.54 mill/uL (4.70-6.10); White Blood Cell (WBC) Count 9.2 thou/uL (4.8-10.8)
[2021-06-06] MEDS: Latanoprost 0.005% Ophth Soln 2.5 ml Bottle EA EYE SCH (20:34)
[2021-06-06] MEDS: Atorvastatin Calcium 40 MG TAB PO SCH (20:36)
[2021-06-07] MEDS: Milk Of Magnesia 30 ML UDCUP PO PRN (01:55)
[2021-06-07] MEDS: Guaifenesin DM 100-10/5 ML UDCUP PO PRN (01:57)
[2021-06-07 04:54] LABS: #Eosinphils 0.3 thou/uL (0.0-0.7); #Lymphocytes 0.6 thou/uL (1.20-3.40); #Neutrophils 6.7 thou/uL (1.40-6.50); %Basophils 0.3 % (0.0-1.0); %Eosinophils 2.9 % (0.0-10.0); %Lymphocytes 7.2 % (21.0-51.0); %Neutrophils 78.5 % (42.0-75.0); Hemoglobin 8.1 g/dL (14.0-18.0); Mean Corpuscular HGB CONC 34.5 g/dL (32.0-36.0); Mean Corpuscular Hemoglobin 31.9 pg (27.0-31.0); Mean Corpuscular Volume 92.5 fL (78.0-98.0); Mean Platelet Volume 7.2 fL (7.4-10.4); Platelet Count 237 thou/uL (130-400); RBC Distribution Width 12.2 % (11.5-14.5); Red Blood Cell (RBC) Count 2.54 mill/uL (4.70-6.10); White Blood Cell (WBC) Count 8.6 thou/uL (4.8-10.8)
[2021-06-07 05:14] LABS: Anion Gap 10 mmol/L (10-20); BUN (Urea Nitrogen) 23 mg/dL (8.4-25.7); Calc. Creatinine Clearance 61 mL/min (70-130); Calcium 8.8 mg/dL (7.8-10.44); Carbon Dioxide 29 mmol/L (23-31); Chloride 98 mmol/L (98-107); Glucose 174 mg/dL (83-110); Potassium 4.2 mmol/L (3.5-5.1); Sodium 133 mmol/L (136-145)
[2021-06-07] MEDS: Insulin Regular 300 UNITS/3 ML VIAL SC PRN ×3 (06:31→17:11)
[2021-06-07] MEDS: Mometasone 100 MCG/PUFF (1 INHALER) INH SCH (07:31)
[2021-06-07] MEDS: Tamsulosin HCl 0.4 MG CAP PO SCH (09:30)
[2021-06-07] MEDS: Cholecalciferol 1,000 UNITS (25 MCG) TAB PO SCH (09:30)
[2021-06-07] MEDS: Finasteride 5 MG TAB PO SCH (09:30)
[2021-06-07] MEDS: Aspirin Chewable 81 MG TAB PO SCH (09:31)
[2021-06-07] MEDS: Potassium Chloride 10 MEQ TAB PO SCH (09:31)
[2021-06-07] MEDS: Alogliptin 6.25 MG TAB PO SCH (09:31)
[2021-06-07] MEDS: Furosemide 40 MG TAB PO SCH (09:31)
[2021-06-07] MEDS: Ezetimibe 10 MG TAB PO SCH (09:31)
[2021-06-07] MEDS: Clopidogrel Bisulfate 75 MG TAB PO SCH (09:31)
[2021-06-07] MEDS: Carvedilol 3.125 MG TAB PO SCH ×2 (09:31→17:14)
[2021-06-07] MEDS: Bupropion 150 MG XL TAB PO SCH (09:31)
[2021-06-07] MEDS ORDERED: Furosemide 40 MG/4 ML VIAL SLOW IVP SCH (13:30)
[2021-06-07 15:02] VITALS: BP 123/59; TEMP 97.8
== END 2021-06-07 18:33 | DRG 231 ==
LOC: ERS 12:29 → CCU 18:28 → 2NO 06-03 17:44
PROVIDERS: ADMIT Internal Medicine Cardiovascular Disease; ATTEND Internal Medicine Cardiovascular Disease
PROC: 027034Z Dilation of Coronary Artery, One Artery with Drug-eluting Intraluminal Device, Percutaneous Approach (ICD-10-PCS; principal; 2021-05-31)
PROC: 021009W Bypass Coronary Artery, One Artery from Aorta with Autologous Venous Tissue, Open Approach (ICD-10-PCS; 2021-05-31)
PROC: 06BQ4ZZ Excision of Left Saphenous Vein, Percutaneous Endoscopic Approach (ICD-10-PCS; 2021-05-31)
PROC: 4A023N7 Measurement of Cardiac Sampling and Pressure, Left Heart, Percutaneous Approach (ICD-10-PCS; 2021-05-31)
PROC: B2111ZZ Fluoroscopy of Multiple Coronary Arteries using Low Osmolar Contrast (ICD-10-PCS; 2021-05-31)
PROC: B2151ZZ Fluoroscopy of Left Heart using Low Osmolar Contrast (ICD-10-PCS; 2021-05-31)
PROC: 5A1221Z Performance of Cardiac Output, Continuous (ICD-10-PCS; 2021-05-31)
DX: T82.855A Stenosis of coronary artery stent, initial encounter (principal); I21.09 ST elevation (STEMI) myocardial infarction involving other coronary artery of anterior wall; Z20.822 Contact with and (suspected) exposure to COVID-19; I10 Essential (primary) hypertension; E11.9 Type 2 diabetes mellitus without complications; I25.10 Atherosclerotic heart disease of native coronary artery without angina pectoris; N40.0 Benign prostatic hyperplasia without lower urinary tract symptoms; E78.5 Hyperlipidemia, unspecified; Y84.0 Cardiac catheterization as the cause of abnormal reaction of the patient, or of later complication, without mention of misadventure at the time of the procedure; Z95.5 Presence of coronary angioplasty implant and graft; Z87.891 Personal history of nicotine dependence; Z79.899 Other long term (current) drug therapy; Z79.82 Long term (current) use of aspirin; Z79.84 Long term (current) use of oral hypoglycemic drugs; I48.91 Unspecified atrial fibrillation
CPT/HCPCS: 36415; 36416; 36430; 71045; 80048; 80053; 82553; 82805; 83690; 84484; 85025; 85347; 85610; 85730; 86850; 86900; 86901; 92920; 93005; 93010; 93306; 93458; 93798; 94002; 94003; 94640; 96365; 96372; C1713; C1769; J0153; J0171; J1100; J1644; J1650; J1815; J1885; J1940; J2001; J2250; J2270; J2370; J2405; J2704; J3010; J3370; J3475; J3480; J3490; J7620; P9016; P9045; Q9967; S0017; S0020; U0002

== ENCOUNTER 2021-06-21 14:55 | Inpatient (IN) | payer OTHER ==
[~2021-06-21 14:55] MED LIST changes: -Iopamidol 370 76% 50 ML VIAL FS ONE; -Nitroglycerin 50 MG/250 ML BOT ONE; -Rocuronium Bromide 10 MG/ML (10ML VIAL) ONE
[2021-06-21] MEDS: predniSONE 20 MG TAB PO SCH (14:55)
[2021-06-21 15:42] LABS: #Eosinphils 0.1 thou/uL (0.0-0.7); #Lymphocytes 0.7 thou/uL (1.20-3.40); #Monocytes 0.7 thou/uL (0.11-0.59); #Neutrophils 6.9 thou/uL (1.40-6.50); %Basophils 0.4 % (0.0-1.0); %Eosinophils 1.3 % (0.0-10.0); %Lymphocytes 8.1 % (21.0-51.0); %Monocytes 8.4 % (0.0-10.0); %Neutrophils 81.7 % (42.0-75.0); Hemoglobin 10.4 g/dL (14.0-18.0); Mean Corpuscular HGB CONC 33.1 g/dL (32.0-36.0); Mean Corpuscular Hemoglobin 30.7 pg (27.0-31.0); Mean Corpuscular Volume 92.7 fL (78.0-98.0); Mean Platelet Volume 7.3 fL (7.4-10.4); Platelet Count 301 thou/uL (130-400); RBC Distribution Width 12.7 % (11.5-14.5); White Blood Cell (WBC) Count 8.4 thou/uL (4.8-10.8)
[2021-06-21 16:14] LABS: ALT (SGPT) 14 U/L (8-55); AST (SGOT) 14 U/L (5-34); Albumin 3.6 g/dL (3.4-4.8); Alkaline Phosphatase 154 U/L (40-110); Anion Gap 14 mmol/L (10-20); BUN (Urea Nitrogen) 25 mg/dL (8.4-25.7); Bilirubin, Total 0.7 mg/dL (0.2-1.2); Calc. Creatinine Clearance 0 mL/min (70-130); Calcium 8.9 mg/dL (7.8-10.44); Carbon Dioxide 27 mmol/L (23-31); Chloride 102 mmol/L (98-107); Globulin 3.2 g/dL (2.4-3.5); Glucose 197 mg/dL (83-110); Potassium 4.7 mmol/L (3.5-5.1); Protein, Total 6.8 g/dL (5.8-8.1); Sodium 138 mmol/L (136-145)
[2021-06-21] MEDS ORDERED: Furosemide 40 MG/4 ML VIAL SLOW IVP SCH (17:45)
[2021-06-21 19:15] LABS: Troponin I 0.023 ng/mL (< 0.028)
[2021-06-21 19:36] LABS: SARS-CoV-2 NAA Rapid Test Not Detected (NotDetected)
[2021-06-21] MEDS ORDERED: Ondansetron PF 4 MG/2 ML Vial ONE (19:38)
[2021-06-21] MEDS ORDERED: Ondansetron PF 4 MG/2 ML Vial IVP PRN (20:58)
[2021-06-21] MEDS ORDERED: Ondansetron ODT 4 MG TAB PO PRN (20:58)
[2021-06-21] MEDS ORDERED: Acetaminophen 650 MG Suppository PR PRN (20:58)
[2021-06-21] MEDS ORDERED: Dextrose 50% Abboject 50 ML SYRINGE SLOW IVP PRN (20:58)
[2021-06-21] MEDS ORDERED: Dextrose 5% in Water 1,000 ML IV PRN (20:58)
[2021-06-21 22:29] LABS: Troponin I 0.019 ng/mL (< 0.028)
[2021-06-22] MEDS: Amiodarone 450 MG in Dextrose 5% in Water 250 ML IVPB SCH ×2 (00:37→11:41)
[2021-06-22 04:21] LABS: #Eosinphils 0.1 thou/uL (0.0-0.7); #Lymphocytes 0.8 thou/uL (1.20-3.40); #Monocytes 0.5 thou/uL (0.11-0.59); #Neutrophils 4.8 thou/uL (1.40-6.50); %Basophils 0.3 % (0.0-1.0); %Eosinophils 1.8 % (0.0-10.0); %Lymphocytes 12.8 % (21.0-51.0); %Monocytes 8.3 % (0.0-10.0); %Neutrophils 76.9 % (42.0-75.0); Mean Corpuscular HGB CONC 32.4 g/dL (32.0-36.0); Mean Corpuscular Hemoglobin 29.8 pg (27.0-31.0); Mean Corpuscular Volume 92.1 fL (78.0-98.0); Mean Platelet Volume 7.3 fL (7.4-10.4); Platelet Count 237 thou/uL (130-400); RBC Distribution Width 12.6 % (11.5-14.5); Red Blood Cell (RBC) Count 3.03 mill/uL (4.70-6.10); White Blood Cell (WBC) Count 6.2 thou/uL (4.8-10.8)
[2021-06-22 04:48] LABS: Anion Gap 10 mmol/L (10-20); BUN (Urea Nitrogen) 22 mg/dL (8.4-25.7); Calc. Creatinine Clearance 55 mL/min (70-130); Calcium 8.8 mg/dL (7.8-10.44); Carbon Dioxide 32 mmol/L (23-31); Chloride 101 mmol/L (98-107); Glucose 157 mg/dL (83-110); Potassium 4.2 mmol/L (3.5-5.1); Sodium 139 mmol/L (136-145)
[2021-06-22 05:05] LABS: Free T4 (Free Thyroxine) 1.41 ng/dL (0.70-1.48); Thyroid Stimulating Hormone 0.0483 uIU/mL (0.35-4.94)
[2021-06-22] MEDS: Ipratropium Bromide 2.5 ml Neb NEB SCH ×3 (07:03→19:28)
[2021-06-22] MEDS ORDERED: Furosemide 40 MG/4 ML VIAL SLOW IVP SCH (09:00)
[2021-06-22] MEDS: Hydroxychloroquine Sulfate 200 MG TAB PO SCH ×2 (10:00→21:08)
[2021-06-22] MEDS: Aspirin 81 mg Enteric Coated Tablet PO SCH (10:00)
[2021-06-22] MEDS: Carvedilol 6.25 MG TAB PO SCH ×2 (14:08→21:09)
[2021-06-22] MEDS ORDERED: Bisacodyl 5 MG TAB PO SCH (14:30)
[2021-06-22] MEDS: HumaLOG 300 UNITS/3 ML VIAL SC PRN ×2 (16:28→21:37)
[2021-06-22] MEDS: Furosemide 40 MG/4 ML VIAL SLOW IVP SCH (21:08)
[2021-06-22] MEDS: Atorvastatin Calcium 40 MG TAB PO SCH (21:09)
[2021-06-23] MEDS: Ipratropium Bromide 2.5 ml Neb NEB SCH ×5 (01:30→23:45)
[2021-06-23 05:14] LABS: ALT (SGPT) 14 U/L (8-55); AST (SGOT) 15 U/L (5-34); Albumin 2.9 g/dL (3.4-4.8); Alkaline Phosphatase 121 U/L (40-110); Anion Gap 13 mmol/L (10-20); BUN (Urea Nitrogen) 24 mg/dL (8.4-25.7); Bilirubin, Total 0.7 mg/dL (0.2-1.2); Calc. Creatinine Clearance 48 mL/min (70-130); Calcium 8.7 mg/dL (7.8-10.44); Carbon Dioxide 30 mmol/L (23-31); Chloride 97 mmol/L (98-107); Globulin 3.2 g/dL (2.4-3.5); Glucose 182 mg/dL (83-110); Magnesium 1.5 mg/dL (1.6-2.6); Potassium 3.8 mmol/L (3.5-5.1); Protein, Total 6.1 g/dL (5.8-8.1); Sodium 136 mmol/L (136-145)
[2021-06-23] MEDS: HumaLOG 300 UNITS/3 ML VIAL SC PRN ×3 (06:42→23:16)
[2021-06-23 06:46] LABS: #Eosinphils 0.1 thou/uL (0.0-0.7); #Lymphocytes 0.6 thou/uL (1.20-3.40); #Monocytes 0.6 thou/uL (0.11-0.59); #Neutrophils 5.4 thou/uL (1.40-6.50); %Basophils 0.1 % (0.0-1.0); %Lymphocytes 8.4 % (21.0-51.0); %Monocytes 8.9 % (0.0-10.0); %Neutrophils 80.6 % (42.0-75.0); Hemoglobin 9.2 g/dL (14.0-18.0); Mean Corpuscular HGB CONC 31.9 g/dL (32.0-36.0); Mean Corpuscular Hemoglobin 29.5 pg (27.0-31.0); Mean Corpuscular Volume 92.5 fL (78.0-98.0); Mean Platelet Volume 7.2 fL (7.4-10.4); Platelet Count 236 thou/uL (130-400); RBC Distribution Width 12.6 % (11.5-14.5); Red Blood Cell (RBC) Count 3.12 mill/uL (4.70-6.10); White Blood Cell (WBC) Count 6.7 thou/uL (4.8-10.8)
[2021-06-23] MEDS: Furosemide 40 MG/4 ML VIAL SLOW IVP SCH (09:29)
[2021-06-23] MEDS: Hydroxychloroquine Sulfate 200 MG TAB PO SCH ×2 (09:31→20:01)
[2021-06-23] MEDS: Carvedilol 6.25 MG TAB PO SCH ×2 (09:31→19:55)
[2021-06-23] MEDS: Aspirin 81 mg Enteric Coated Tablet PO SCH (09:31)
[2021-06-23] MEDS: Amiodarone 450 MG in Dextrose 5% in Water 250 ML IVPB SCH (09:38)
[2021-06-23] MEDS: Acetaminophen 325 MG TAB PO PRN ×2 (12:41→19:56)
[2021-06-23 13:16] LABS: Fluid, pH - Pleural Fld Greater than 7.50 (7.60 - 7.66)
[2021-06-23 13:53] LABS: Fluid, Triglycerides 34 mg/dL (Not Available); Pleural Fluid, Glucose 212 mg/dL; Pleural Fluid, LDH 354 U/L (Not Available)
[2021-06-23 13:55] LABS: Pleural Fluid, Amylase Less than 30 U/L (Not Available)
[2021-06-23 17:50] LABS: BF Color Red; BF WBC/Nonhematics Ct.-Manual 2160 /cu.mm; Body Fluid Source Pleural Fluid; Clarity Cloudy/Turbid (Clear); Tube # 2
[2021-06-23 17:51] LABS: BF RBC Count - Manual 457600 /cu.mm
[2021-06-23] MEDS: HYDROcodone/Acetaminophen 5/325 mg Tablet PO PRN (18:10)
[2021-06-23] MEDS ORDERED: Lidocaine 5% Patch TD SCH (18:15)
[2021-06-23 18:49] LABS: BF Segmented Neutrophils 33 %; Cell Count Non Hematic 23 %; Eosinophils 2 %; Lymphocytes 38 %
[2021-06-23] MEDS: Docusate 100 MG CAP PO SCH ×2 (19:55→19:56)
[2021-06-23] MEDS: Atorvastatin Calcium 40 MG TAB PO SCH (19:55)
[2021-06-23] MEDS: Amiodarone 200 MG TAB PO SCH (19:56)
[2021-06-24 04:15] LABS: #Basophils 0.1 thou/uL (0.0-0.2); #Eosinphils 0.1 thou/uL (0.0-0.7); #Lymphocytes 0.8 thou/uL (1.20-3.40); #Monocytes 0.9 thou/uL (0.11-0.59); #Neutrophils 6.3 thou/uL (1.40-6.50); %Basophils 0.8 % (0.0-1.0); %Eosinophils 1.4 % (0.0-10.0); %Lymphocytes 9.8 % (21.0-51.0); %Monocytes 10.6 % (0.0-10.0); %Neutrophils 77.3 % (42.0-75.0); Mean Corpuscular Volume 90.9 fL (78.0-98.0); Mean Platelet Volume 7.3 fL (7.4-10.4); Platelet Count 220 thou/uL (130-400); RBC Distribution Width 12.5 % (11.5-14.5); White Blood Cell (WBC) Count 8.2 thou/uL (4.8-10.8)
[2021-06-24] MEDS ORDERED: Transdermal Patch Removal TOP SCH (04:15)
[2021-06-24 04:39] LABS: ALT (SGPT) 10 U/L (8-55); AST (SGOT) 10 U/L (5-34); Albumin 2.8 g/dL (3.4-4.8); Alkaline Phosphatase 119 U/L (40-110); Anion Gap 14 mmol/L (10-20); BUN (Urea Nitrogen) 29 mg/dL (8.4-25.7); Bilirubin, Total 0.7 mg/dL (0.2-1.2); Calc. Creatinine Clearance 46 mL/min (70-130); Calcium 8.8 mg/dL (7.8-10.44); Carbon Dioxide 29 mmol/L (23-31); Chloride 95 mmol/L (98-107); Globulin 3.3 g/dL (2.4-3.5); Glucose 178 mg/dL (83-110); Magnesium 1.9 mg/dL (1.6-2.6); Potassium 3.6 mmol/L (3.5-5.1); Protein, Total 6.1 g/dL (5.8-8.1); Sodium 134 mmol/L (136-145)
[2021-06-24] MEDS: Furosemide 40 MG TAB PO SCH (06:03)
[2021-06-24] MEDS: HumaLOG 300 UNITS/3 ML VIAL SC PRN ×3 (06:03→20:33)
[2021-06-24] MEDS: Ipratropium Bromide 2.5 ml Neb NEB SCH ×3 (07:36→19:30)
[2021-06-24] MEDS: Hydroxychloroquine Sulfate 200 MG TAB PO SCH ×2 (08:20→22:29)
[2021-06-24] MEDS: Amiodarone 200 MG TAB PO SCH ×2 (08:20→20:32)
[2021-06-24] MEDS: Carvedilol 6.25 MG TAB PO SCH ×2 (08:20→20:32)
[2021-06-24] MEDS: Aspirin 81 mg Enteric Coated Tablet PO SCH (08:20)
[2021-06-24] MEDS: HYDROcodone/Acetaminophen 5/325 mg Tablet PO PRN (08:35)
[2021-06-24] MEDS ORDERED: Morphine 4 MG/ML VIAL SLOW IVP PRN (09:03)
[2021-06-24] MEDS ORDERED: Bisacodyl 10 MG SUPP PR PRN (13:25)
[2021-06-24] MEDS ORDERED: Bisacodyl 10 MG SUPP PR SCH (13:30)
[2021-06-24 13:53] LABS: Fluid, Triglycerides 33 mg/dL (Not Available); Pleural Fluid, Amylase Less than 30 U/L (Not Available); Pleural Fluid, Glucose 194 mg/dL; Pleural Fluid, LDH 334 U/L (Not Available)
[2021-06-24 14:35] LABS: Fluid, pH - Pleural Fld Greater than 7.50 (7.60 - 7.66)
[2021-06-24 14:40] LABS: BF Color Red; Body Fluid Source Pleural Fluid; Clarity Cloudy/Turbid (Clear)
[2021-06-24 14:44] LABS: Tube # 1
[2021-06-24 14:45] LABS: BF RBC Count - Manual 286400 /cu.mm; BF WBC/Nonhematics Ct.-Manual 920 /cu.mm
[2021-06-24 14:57] LABS: BF Segmented Neutrophils 7 %; Cell Count Non Hematic 44 %
[2021-06-24 14:58] LABS: Lymphocytes 47 %
[2021-06-24] MEDS: Dexamethasone 4 mg/ml Vial SLOW IVP SCH ×2 (15:36→20:33)
[2021-06-24] MEDS: Atorvastatin Calcium 40 MG TAB PO SCH (20:32)
[2021-06-25] MEDS: Ipratropium Bromide 2.5 ml Neb NEB SCH ×5 (03:06→23:54)
[2021-06-25] MEDS: HumaLOG 300 UNITS/3 ML VIAL SC PRN ×4 (06:09→21:43)
[2021-06-25 06:25] LABS: #Lymphocytes 0.3 thou/uL (1.20-3.40); #Monocytes 0.2 thou/uL (0.11-0.59); #Neutrophils 7.2 thou/uL (1.40-6.50); %Basophils 0.3 % (0.0-1.0); %Eosinophils 0.1 % (0.0-10.0); %Lymphocytes 3.3 % (21.0-51.0); %Monocytes 3.1 % (0.0-10.0); %Neutrophils 93.3 % (42.0-75.0); Hemoglobin 9.4 g/dL (14.0-18.0); Mean Corpuscular HGB CONC 32.7 g/dL (32.0-36.0); Mean Corpuscular Hemoglobin 29.7 pg (27.0-31.0); Mean Corpuscular Volume 90.7 fL (78.0-98.0); Mean Platelet Volume 7.5 fL (7.4-10.4); Platelet Count 217 thou/uL (130-400); RBC Distribution Width 12.4 % (11.5-14.5); Red Blood Cell (RBC) Count 3.15 mill/uL (4.70-6.10); White Blood Cell (WBC) Count 7.7 thou/uL (4.8-10.8)
[2021-06-25 06:51] LABS: ALT (SGPT) 12 U/L (8-55); AST (SGOT) 15 U/L (5-34); Alkaline Phosphatase 119 U/L (40-110); Anion Gap 17 mmol/L (10-20); BUN (Urea Nitrogen) 33 mg/dL (8.4-25.7); Bilirubin, Total 0.5 mg/dL (0.2-1.2); Calc. Creatinine Clearance 51 mL/min (70-130); Calcium 9.4 mg/dL (7.8-10.44); Carbon Dioxide 28 mmol/L (23-31); Chloride 96 mmol/L (98-107); Globulin 3.8 g/dL (2.4-3.5); Glucose 285 mg/dL (83-110); Magnesium 2.2 mg/dL (1.6-2.6); Potassium 4.5 mmol/L (3.5-5.1); Protein, Total 6.8 g/dL (5.8-8.1); Sodium 136 mmol/L (136-145)
[2021-06-25] MEDS: Dexamethasone 4 mg/ml Vial SLOW IVP SCH ×2 (08:42→14:21)
[2021-06-25] MEDS: Furosemide 40 MG TAB PO SCH (08:42)
[2021-06-25] MEDS: Carvedilol 6.25 MG TAB PO SCH ×2 (08:42→20:37)
[2021-06-25] MEDS: Amiodarone 200 MG TAB PO SCH ×2 (08:43→20:37)
[2021-06-25] MEDS: Aspirin 81 mg Enteric Coated Tablet PO SCH (08:43)
[2021-06-25] MEDS: Hydroxychloroquine Sulfate 200 MG TAB PO SCH ×2 (10:24→20:37)
[2021-06-25] MEDS: Docusate 100 MG CAP PO SCH (20:37)
[2021-06-25] MEDS: Atorvastatin Calcium 40 MG TAB PO SCH (20:37)
[2021-06-26] MEDS: HumaLOG 300 UNITS/3 ML VIAL SC PRN ×4 (06:08→21:40)
[2021-06-26] MEDS: Ipratropium Bromide 2.5 ml Neb NEB SCH ×3 (07:43→19:00)
[2021-06-26] MEDS: Amiodarone 200 MG TAB PO SCH ×2 (08:06→21:38)
[2021-06-26] MEDS: Hydroxychloroquine Sulfate 200 MG TAB PO SCH ×2 (08:06→21:37)
[2021-06-26] MEDS: Furosemide 40 MG TAB PO SCH (08:08)
[2021-06-26] MEDS: Carvedilol 6.25 MG TAB PO SCH ×2 (08:08→21:38)
[2021-06-26] MEDS: Aspirin 81 mg Enteric Coated Tablet PO SCH (08:09)
[2021-06-26] MEDS: Docusate 100 MG CAP PO SCH (21:37)
[2021-06-26] MEDS: Atorvastatin Calcium 40 MG TAB PO SCH (21:37)
[2021-06-27] MEDS: Melatonin 3 MG TAB PO PRN ×2 (00:53→21:13)
[2021-06-27] MEDS: Ipratropium Bromide 2.5 ml Neb NEB SCH ×4 (04:09→19:00)
[2021-06-27] MEDS: Carvedilol 6.25 MG TAB PO SCH ×2 (08:26→21:00)
[2021-06-27] MEDS: Aspirin 81 mg Enteric Coated Tablet PO SCH (08:26)
[2021-06-27] MEDS: Amiodarone 200 MG TAB PO SCH ×2 (08:26→21:05)
[2021-06-27] MEDS: Furosemide 40 MG TAB PO SCH (08:26)
[2021-06-27] MEDS: predniSONE 20 MG TAB PO SCH (08:26)
[2021-06-27] MEDS: Hydroxychloroquine Sulfate 200 MG TAB PO SCH ×2 (10:14→21:25)
[2021-06-27] MEDS: HumaLOG 300 UNITS/3 ML VIAL SC PRN ×3 (11:36→21:04)
[2021-06-27 11:41] LABS: Fungus Stain Final report (.)
[2021-06-27] MEDS: Atorvastatin Calcium 40 MG TAB PO SCH (21:04)
[2021-06-27] MEDS: Docusate 100 MG CAP PO SCH (21:04)
[2021-06-28] MEDS: Ipratropium Bromide 2.5 ml Neb NEB SCH ×4 (04:44→19:00)
[2021-06-28 05:46] LABS: #Lymphocytes 0.7 thou/uL (1.20-3.40); #Monocytes 0.6 thou/uL (0.11-0.59); #Neutrophils 4.7 thou/uL (1.40-6.50); %Basophils 0.1 % (0.0-1.0); %Eosinophils 0.6 % (0.0-10.0); %Lymphocytes 11.2 % (21.0-51.0); %Monocytes 10.4 % (0.0-10.0); %Neutrophils 77.7 % (42.0-75.0); Hemoglobin 8.8 g/dL (14.0-18.0); Mean Corpuscular HGB CONC 32.3 g/dL (32.0-36.0); Mean Corpuscular Hemoglobin 29.3 pg (27.0-31.0); Mean Corpuscular Volume 90.8 fL (78.0-98.0); Mean Platelet Volume 7.6 fL (7.4-10.4); Platelet Count 188 thou/uL (130-400); RBC Distribution Width 12.4 % (11.5-14.5); Red Blood Cell (RBC) Count 3.01 mill/uL (4.70-6.10)
[2021-06-28 06:09] LABS: Anion Gap 13 mmol/L (10-20); BUN (Urea Nitrogen) 43 mg/dL (8.4-25.7); Calc. Creatinine Clearance 44 mL/min (70-130); Calcium 8.5 mg/dL (7.8-10.44); Carbon Dioxide 30 mmol/L (23-31); Chloride 96 mmol/L (98-107); Glucose 281 mg/dL (83-110); Magnesium 1.9 mg/dL (1.6-2.6); Potassium 4.1 mmol/L (3.5-5.1); Sodium 135 mmol/L (136-145)
[2021-06-28] MEDS: HumaLOG 300 UNITS/3 ML VIAL SC PRN ×4 (06:17→20:26)
[2021-06-28] MEDS: Amiodarone 200 MG TAB PO SCH ×2 (09:08→20:24)
[2021-06-28] MEDS: Furosemide 40 MG TAB PO SCH (09:08)
[2021-06-28] MEDS: Carvedilol 6.25 MG TAB PO SCH ×3 (09:09→20:47)
[2021-06-28] MEDS: Hydroxychloroquine Sulfate 200 MG TAB PO SCH ×2 (09:09→20:28)
[2021-06-28] MEDS: predniSONE 20 MG TAB PO SCH (09:09)
[2021-06-28] MEDS: Aspirin 81 mg Enteric Coated Tablet PO SCH (09:09)
[2021-06-28 11:23] VITALS: BMI 30.2
[2021-06-28 12:47] LABS: SARS-CoV-2 PCR by NAA Not Detected (NotDetected)
[2021-06-28 17:24] LABS: #Basophils 0.1 thou/uL (0.0-0.2); #Lymphocytes 0.2 thou/uL (1.20-3.40); #Monocytes 0.2 thou/uL (0.11-0.59); #Neutrophils 5.1 thou/uL (1.40-6.50); %Basophils 1.3 % (0.0-1.0); %Eosinophils 0.3 % (0.0-10.0); %Lymphocytes 3.3 % (21.0-51.0); %Monocytes 3.1 % (0.0-10.0); Hemoglobin 10.2 g/dL (14.0-18.0); Mean Corpuscular Hemoglobin 29.3 pg (27.0-31.0); Mean Corpuscular Volume 91.3 fL (78.0-98.0); Platelet Count 222 thou/uL (130-400); RBC Distribution Width 12.5 % (11.5-14.5); Red Blood Cell (RBC) Count 3.49 mill/uL (4.70-6.10); White Blood Cell (WBC) Count 5.6 thou/uL (4.8-10.8)
[2021-06-28] MEDS ORDERED: Lorazepam 0.5 MG TAB PO SCH (20:00)
[2021-06-28] MEDS ORDERED: Polyethylene Glycol 3350 17 GM Packet PO SCH (20:00)
[2021-06-28] MEDS: Atorvastatin Calcium 40 MG TAB PO SCH (20:23)
[2021-06-28] MEDS: Docusate 100 MG CAP PO SCH (20:25)
[2021-06-28] MEDS: Gabapentin 400 MG CAP PO SCH (20:43)
[2021-06-28] MEDS ORDERED: Latanoprost 0.005% Ophth Soln 2.5 ml Bottle EA EYE SCH (21:00)
[2021-06-28] MEDS ORDERED: Albuterol 200 PUFF (6.7GM INHALER) INH PRN (22:30)
[2021-06-29] MEDS: Ipratropium Bromide 2.5 ml Neb NEB SCH ×3 (03:17→13:43)
[2021-06-29] MEDS: HumaLOG 300 UNITS/3 ML VIAL SC PRN ×2 (06:01→12:55)
[2021-06-29] MEDS ORDERED: Mometasone 100 MCG/PUFF (1 INHALER) INH SCH (06:30)
[2021-06-29] MEDS: Carvedilol 6.25 MG TAB PO SCH (08:35)
[2021-06-29] MEDS: Furosemide 40 MG TAB PO SCH (08:36)
[2021-06-29] MEDS: Amiodarone 200 MG TAB PO SCH (08:36)
[2021-06-29] MEDS: Gabapentin 400 MG CAP PO SCH (08:36)
[2021-06-29] MEDS: Aspirin 81 mg Enteric Coated Tablet PO SCH (08:37)
[2021-06-29] MEDS: predniSONE 20 MG TAB PO SCH (08:37)
[2021-06-29] MEDS: Hydroxychloroquine Sulfate 200 MG TAB PO SCH (08:38)
[2021-06-29] MEDS ORDERED: Bupropion 150 MG XL TAB PO SCH (09:00)
[2021-06-29] MEDS ORDERED: Trospium 20 MG TAB PO SCH (09:00)
[2021-06-29] MEDS ORDERED: Ezetimibe 10 MG TAB PO SCH (09:00)
[2021-06-29] MEDS ORDERED: Clopidogrel Bisulfate 75 MG TAB PO SCH (09:00)
[2021-06-29] MEDS ORDERED: Glimepiride 1 MG TAB PO SCH (09:00)
[2021-06-29] MEDS ORDERED: Loratadine 10 MG TAB PO SCH (09:00)
[2021-06-29] MEDS ORDERED: Multivit, Therapeutic 1 TAB PO SCH (09:00)
[2021-06-29] MEDS ORDERED: Alogliptin 25 MG TAB PO SCH (09:00)
[2021-06-29] MEDS ORDERED: Tamsulosin HCl 0.4 MG CAP PO SCH (09:00)
[2021-06-29] MEDS ORDERED: Finasteride 5 MG TAB PO SCH (09:00)
[2021-06-29] MEDS ORDERED: Cholecalciferol 1,000 UNITS (25 MCG) TAB PO SCH (09:00)
[2021-06-29 15:51] VITALS: BP 110/52; TEMP 97.8
== END 2021-06-29 16:35 | disposition home or self-care (01) | DRG 280 ==
LOC: ERS 14:55 → CCU 17:48 → IMCU/EMU 06-23 23:02 → NEURO 06-24 14:44
PROVIDERS: ADMIT Family Medicine; ATTEND Internal Medicine
PROC: 0W9B3ZZ Drainage of Left Pleural Cavity, Percutaneous Approach (ICD-10-PCS; principal; 2021-06-23)
PROC: 0W993ZZ Drainage of Right Pleural Cavity, Percutaneous Approach (ICD-10-PCS; 2021-06-24)
DX: I24.1 Dressler's syndrome (principal); Z20.822 Contact with and (suspected) exposure to COVID-19; I50.23 Acute on chronic systolic (congestive) heart failure; I21.09 ST elevation (STEMI) myocardial infarction involving other coronary artery of anterior wall; I31.3 Pericardial effusion (noninflammatory); E87.1 Hypo-osmolality and hyponatremia; J91.8 Pleural effusion in other conditions classified elsewhere; E04.2 Nontoxic multinodular goiter; I25.10 Atherosclerotic heart disease of native coronary artery without angina pectoris; N40.0 Benign prostatic hyperplasia without lower urinary tract symptoms; J45.909 Unspecified asthma, uncomplicated; H40.9 Unspecified glaucoma; K21.9 Gastro-esophageal reflux disease without esophagitis; N18.30 Chronic kidney disease, stage 3 unspecified; I48.0 Paroxysmal atrial fibrillation; Z28.21 Immunization not carried out because of patient refusal; Z95.5 Presence of coronary angioplasty implant and graft; Z87.891 Personal history of nicotine dependence; Z79.899 Other long term (current) drug therapy; Z79.82 Long term (current) use of aspirin; Z79.84 Long term (current) use of oral hypoglycemic drugs; Z79.02 Long term (current) use of antithrombotics/antiplatelets
CPT/HCPCS: 36415; 36416; 71045; 71046; 71250; 71275; 80048; 80053; 82150; 82945; 83615; 83735; 83880; 83986; 84157; 84439; 84443; 84478; 84481; 84484; 85025; 85060; 87070; 87102; 87116; 87205; 87206; 88112; 88305; 89051; 93005; 93306; 94640; 96365; 96366; J0282; J1100; J1642; J1815; J1940; J2405; J7070; J7512; Q0162; Q9967; U0002; U0003; U0005

== ENCOUNTER 2021-07-05 16:24 | Outpatient (CLI) | payer OTHER | END 2021-07-05 16:25 | disposition home or self-care (01) | LOC: BICRAD 16:24 | PROVIDERS: ATTEND Internal Medicine Cardiovascular Disease | DX: J90 Pleural effusion, not elsewhere classified (principal) | CPT/HCPCS: 71046 ==

== ENCOUNTER 2021-08-18 14:07 | Outpatient (CLI) | payer OTHER | END 2021-08-18 14:08 | disposition home or self-care (01) | LOC: BICULT 14:07 | PROVIDERS: ATTEND Otolaryngology Plastic Surgery within the Head & Neck | DX: E04.1 Nontoxic single thyroid nodule (principal) | CPT/HCPCS: 76536 ==

== ENCOUNTER 2021-10-05 09:45 | Outpatient (CLI) | payer OTHER | END 2021-10-05 09:46 | disposition home or self-care (01) | LOC: BICCT 09:45 | PROVIDERS: ATTEND Internal Medicine Cardiovascular Disease | DX: R06.02 Shortness of breath (principal); J90 Pleural effusion, not elsewhere classified; I31.3 Pericardial effusion (noninflammatory) | CPT/HCPCS: 71250 ==

== ENCOUNTER 2022-01-16 18:22 | Emergency (ER) | payer OTHER ==
[2022-01-16 19:08] LABS: #Basophils 0.1 thou/uL (0.0-0.2); #Eosinphils 0.4 thou/uL (0.0-0.7); #Lymphocytes 0.8 thou/uL (1.20-3.40); #Monocytes 0.5 thou/uL (0.11-0.59); #Neutrophils 4.9 thou/uL (1.40-6.50); %Basophils 0.9 % (0.0-1.0); %Eosinophils 5.9 % (0.0-10.0); %Lymphocytes 12.3 % (21.0-51.0); %Monocytes 7.8 % (0.0-10.0); %Neutrophils 73.2 % (42.0-75.0); Hemoglobin 12.6 g/dL (14.0-18.0); Mean Corpuscular HGB CONC 33.4 g/dL (32.0-36.0); Mean Corpuscular Hemoglobin 30.1 pg (27.0-31.0); Mean Corpuscular Volume 90.2 fL (78.0-98.0); Mean Platelet Volume 8.7 fL (7.4-10.4); Platelet Count 144 thou/uL (130-400); RBC Distribution Width 12.6 % (11.5-14.5); Red Blood Cell (RBC) Count 4.19 mill/uL (4.70-6.10); White Blood Cell (WBC) Count 6.7 thou/uL (4.8-10.8)
[2022-01-16] MEDS ORDERED: Meclizine HCl 25 MG TAB ONE (19:36)
[2022-01-16 19:44] LABS: ALT (SGPT) 15 U/L (8-55); AST (SGOT) 12 U/L (5-34); Albumin 3.8 g/dL (3.4-4.8); Alkaline Phosphatase 115 U/L (40-110); Anion Gap 14 mmol/L (10-20); BUN (Urea Nitrogen) 23 mg/dL (8.4-25.7); Bilirubin, Total 0.5 mg/dL (0.2-1.2); Calc. Creatinine Clearance 0 mL/min (70-130); Calcium 9.5 mg/dL (7.8-10.44); Carbon Dioxide 29 mmol/L (23-31); Chloride 101 mmol/L (98-107); Estimated GFR 46; Globulin 3.3 g/dL (2.4-3.5); Glucose 112 mg/dL (83-110); Potassium 4.1 mmol/L (3.5-5.1); Protein, Total 7.1 g/dL (5.8-8.1); Sodium 140 mmol/L (136-145)
[2022-01-16 20:03] LABS: Acetaminophen Less than 10.0 mcg/mL (10.0-30.0); Alcohol Less than 10 mg/dL (Less than 10); Salicylate Less than 8.0 mg/dL (15.0-30.0)
== END 2022-01-16 23:23 | disposition home or self-care (01) ==
LOC: ERS 18:22
DX: J32.9 Chronic sinusitis, unspecified (principal); H53.8 Other visual disturbances; R53.1 Weakness; E78.5 Hyperlipidemia, unspecified; N40.0 Benign prostatic hyperplasia without lower urinary tract symptoms; I25.10 Atherosclerotic heart disease of native coronary artery without angina pectoris; E11.22 Type 2 diabetes mellitus with diabetic chronic kidney disease; I13.0 Hypertensive heart and chronic kidney disease with heart failure and stage 1 through stage 4 chronic kidney disease, or unspecified chronic kidney disease; N18.30 Chronic kidney disease, stage 3 unspecified; I50.9 Heart failure, unspecified; D64.9 Anemia, unspecified; Z79.82 Long term (current) use of aspirin; Z79.84 Long term (current) use of oral hypoglycemic drugs; Z79.899 Other long term (current) drug therapy
CPT/HCPCS: 36415; 70450; 80053; 80307; 84484; 85025; 93005; 94760

== ENCOUNTER 2022-04-30 16:47 | Emergency (ER) | payer OTHER | END 2022-04-30 17:26 | disposition left against medical advice (07) | LOC: ERS 16:47 | DX: Z53.21 Procedure and treatment not carried out due to patient leaving prior to being seen by health care provider (principal) ==

== ENCOUNTER 2022-06-26 14:16 | Outpatient (CLI) | payer OTHER | END 2022-06-26 14:17 | disposition home or self-care (01) | LOC: SJX 14:16 | PROVIDERS: ATTEND Family Medicine | DX: G45.9 Transient cerebral ischemic attack, unspecified (principal); I67.82 Cerebral ischemia; G93.9 Disorder of brain, unspecified; I67.89 Other cerebrovascular disease | CPT/HCPCS: 70551 ==

== ENCOUNTER 2023-01-27 21:50 | Inpatient (IN) | payer OTHER ==
[2023-01-27 22:28] LABS: #Eosinphils 0.1 thou/uL (0.0-0.7); #Monocytes 0.7 thou/uL (0.11-0.59); #Neutrophils 9.2 thou/uL (1.40-6.50); %Basophils 0.2 % (0.0-1.0); %Eosinophils 0.7 % (0.0-10.0); %Lymphocytes 6.5 % (21.0-51.0); %Monocytes 6.1 % (0.0-10.0); %Neutrophils 86.2 % (42.0-75.0); Hematocrit 38.2 % (42.0-52.0); Hemoglobin 12.8 g/dL (14.0-18.0); Mean Corpuscular HGB CONC 33.5 g/dL (32.0-36.0); Mean Corpuscular Hemoglobin 30.8 pg (27.0-31.0); Mean Platelet Volume 10.8 fL (7.4-10.4); Platelet Count 182 10x3/uL (130-400); Red Blood Cell (RBC) Count 4.15 mill/uL (4.70-6.10); White Blood Cell (WBC) Count 10.6 10x3/uL (4.8-10.8)
[2023-01-27 22:51] LABS: ALT (SGPT) 20 U/L (8-55); AST (SGOT) 37 U/L (5-34); Alkaline Phosphatase 118 U/L (40-110); Anion Gap 19 mmol/L (10-20); BUN (Urea Nitrogen) 32 mg/dL (8.4-25.7); Bilirubin, Total 0.6 mg/dL (0.2-1.2); CK (CPK) 415 U/L (30-200); Calc. Creatinine Clearance 0 mL/min (70-130); Carbon Dioxide 24 mmol/L (23-31); Chloride 107 mmol/L (98-107); Estimated GFR 31; Globulin 2.9 g/dL (2.4-3.5); Glucose 176 mg/dL (83-110); Potassium 4.8 mmol/L (3.5-5.1); Protein, Total 6.9 g/dL (5.8-8.1); Sodium 145 mmol/L (136-145)
[2023-01-27 22:52] LABS: Acetaminophen Less than 10 mcg/mL (10.0-30.0); Alcohol Less than 10.0 mg/dL (Less than 10); Lipase 17 U/L (8-78); Magnesium 1.8 mg/dL (1.6-2.6); Salicylate Less than 8.0 mg/dL (15.0-30.0)
[2023-01-27] MEDS ORDERED: Acetaminophen 325 MG Suppository ONE (23:33)
[2023-01-27] MEDS ORDERED: Aspirin 300 MG Suppository ONE (23:39)
[2023-01-27 23:42] LABS: Bacteria/HPF None Seen HPF (None Seen); Bilirubin Negative (Negative); Blood, Urine Negative (Negative); CAUTI Indications for Culture Alt mental st,lethar; Clarity Clear (Clear); Glucose, Urine (Dipstick) 300 mg/dL (Negative); Ketone, Urine Trace mg/dL (Negative); Leukocyte Negative Leu/uL (Negative); Nitrite Negative (Negative); Protein, Urine (Dipstick) 50 mg/dL (Neg-Trace); RBC/HPF 0-3 HPF (0-3); Specific Gravity, Urine 1.027 (1.002-1.036); Squamous Epithelial None Seen HPF (0-3); Urobilinogen Normal mg/dL (Less than 2); WBC/HPF 0-3 HPF (0-3); pH, Urine 6.5 (5.0-9.0)
[2023-01-27 23:46] LABS: Urine Culture Reflex No No
[2023-01-27 23:50] LABS: Amphetamine Not Detected (NotDetected); Barbiturates Screen Not Detected (NotDetected); Benzodiazepine Screen Not Detected (NotDetected); Cocaine Metabolite Screen Not Detected (NotDetected); Methadone Not Detected (NotDetected); Methamphetamine Not Detected (NotDetected); Opiate Screen Not Detected (NotDetected); Oxycodone Screen Not Detected (NotDetected); Phencyclidine (PCP) Not Detected (NotDetected); THC/Cannabinoid Screen Not Detected (NotDetected); Tricyclic Screen Not Detected (NotDetected)
[2023-01-28] MEDS ORDERED: Glucagon 1 MG/ML KIT IM PRN (01:02)
[2023-01-28] MEDS ORDERED: Insulin Regular 300 UNITS/3 ML VIAL SC PRN ×2 (01:02)
[2023-01-28] MEDS ORDERED: Dextrose 50% Abboject 50 ML SYRINGE SLOW IVP PRN (01:02)
[2023-01-28] MEDS ORDERED: Dextrose 5% in Water 1,000 ML IV PRN ×2 (01:02→13:14)
[2023-01-28 03:13] LABS: Hemoglobin A1c 7.5 % (4.0-6.0)
[2023-01-28 03:22] VITALS: BMI 21.4
[2023-01-28 03:58] LABS: #Eosinphils 0.1 thou/uL (0.0-0.7); #Monocytes 0.7 thou/uL (0.11-0.59); #Neutrophils 6.6 thou/uL (1.40-6.50); %Basophils 0.4 % (0.0-1.0); %Eosinophils 0.6 % (0.0-10.0); %Lymphocytes 10.4 % (21.0-51.0); %Monocytes 8.4 % (0.0-10.0); %Neutrophils 79.8 % (42.0-75.0); Hematocrit 36.4 % (42.0-52.0); Hemoglobin 11.7 g/dL (14.0-18.0); Mean Corpuscular HGB CONC 32.1 g/dL (32.0-36.0); Mean Corpuscular Hemoglobin 30.6 pg (27.0-31.0); Mean Platelet Volume 10.8 fL (7.4-10.4); Platelet Count 160 10x3/uL (130-400); RBC Distribution Width 12.9 % (11.5-14.5); Red Blood Cell (RBC) Count 3.82 mill/uL (4.70-6.10); White Blood Cell (WBC) Count 8.2 10x3/uL (4.8-10.8)
[2023-01-28 04:03] LABS: Mean Corpuscular Volume 95.3 fl (78.0-98.0)
[2023-01-28 05:07] LABS: ALT (SGPT) 21 U/L (8-55); AST (SGOT) 59 U/L (5-34); Albumin 3.5 g/dL (3.4-4.8); Alkaline Phosphatase 109 U/L (40-110); Anion Gap 12 mmol/L (10-20); BUN (Urea Nitrogen) 29 mg/dL (8.4-25.7); Bilirubin, Total 0.5 mg/dL (0.2-1.2); Calc. Creatinine Clearance 34 mL/min (70-130); Calcium 8.9 mg/dL (7.8-10.44); Carbon Dioxide 26 mmol/L (23-31); Cardiac Risk 3.7 (Less than 4.5); Chloride 110 mmol/L (98-107); Cholesterol 99 mg/dl (< 200 Desired); Estimated GFR 36; Globulin 2.5 g/dL (2.4-3.5); Glucose 71 mg/dL (83-110); HDL Cholesterol 27 mg/dL (>60 Neg Risk); LDL Cholesterol, Calculated 53 mg/dL; Potassium 4.2 mmol/L (3.5-5.1); Sodium 144 mmol/L (136-145); Triglycerides 97 mg/dL (Less than 150)
[2023-01-28 05:13] LABS: Troponin I 14.317 ng/mL (< 0.028)
[2023-01-28] MEDS: Tamsulosin HCl 0.4 MG CAP PO SCH (08:27)
[2023-01-28] MEDS: Clopidogrel Bisulfate 75 MG TAB PO SCH (08:27)
[2023-01-28] MEDS: Ezetimibe 10 MG TAB PO SCH (08:27)
[2023-01-28] MEDS: Famotidine 20 MG TAB PO SCH (08:27)
[2023-01-28] MEDS ORDERED: Heparin 5,000 UNITS/ML VIAL SC SCH (09:00)
[2023-01-28] MEDS ORDERED: Bupropion 150 MG XL TAB PO SCH (09:00)
[2023-01-28] MEDS ORDERED: Iopamidol 370 76% 100 ML VIAL ONE (09:01)
[2023-01-28] MEDS ORDERED: Sodium Chloride 0.9% 1,000 ML IV SCH (09:15)
[2023-01-28 10:25] LABS: Critical Call Chem Troponin I RESULT DECREASING
[2023-01-28] MEDS: Dextrose 5% in Water 1,000 ML IV SCH ×2 (11:30→23:55)
[2023-01-28] MEDS: Atorvastatin Calcium 40 MG TAB PO SCH (20:42)
[2023-01-28] MEDS: Latanoprost 0.005% Ophth Soln 2.5 ml Bottle EA EYE SCH (21:38)
[2023-01-29 07:10] LABS: #Basophils 0.1 thou/uL (0.0-0.2); #Eosinphils 0.2 thou/uL (0.0-0.7); #Monocytes 0.5 thou/uL (0.11-0.59); #Neutrophils 3.3 thou/uL (1.40-6.50); %Eosinophils 3.3 % (0.0-10.0); %Lymphocytes 22.5 % (21.0-51.0); %Monocytes 8.7 % (0.0-10.0); %Neutrophils 64.3 % (42.0-75.0); Hematocrit 34.5 % (42.0-52.0); Hemoglobin 11.2 g/dL (14.0-18.0); Mean Corpuscular HGB CONC 32.5 g/dL (32.0-36.0); Mean Corpuscular Hemoglobin 31.1 pg (27.0-31.0); Mean Corpuscular Volume 95.8 fl (78.0-98.0); Mean Platelet Volume 10.8 fL (7.4-10.4); Platelet Count 142 10x3/uL (130-400); RBC Distribution Width 12.6 % (11.5-14.5); White Blood Cell (WBC) Count 5.2 10x3/uL (4.8-10.8)
[2023-01-29 07:32] LABS: Anion Gap 10 mmol/L (10-20); BUN (Urea Nitrogen) 21 mg/dL (8.4-25.7); Calc. Creatinine Clearance 49 mL/min (70-130); Calcium 8.9 mg/dL (7.8-10.44); Carbon Dioxide 27 mmol/L (23-31); Chloride 105 mmol/L (98-107); Estimated GFR 56; Glucose 98 mg/dL (83-110); Potassium 4.1 mmol/L (3.5-5.1); Sodium 138 mmol/L (136-145)
[2023-01-29] MEDS ORDERED: Carvedilol 3.125 MG TAB PO SCH (09:00)
[2023-01-29] MEDS ORDERED: Non-Formulary Item 1 EACH (Cholecalciferol (Vitamin D3) [Vitamin D3] 5000 UNIT Capsule) PO SCH (09:00)
[2023-01-29] MEDS ORDERED: Non-Formulary Item 1 EACH (Solifenacin Succinate [Solifenacin Succinate] 5 MG Tablet) PO SCH (09:00)
[2023-01-29] MEDS ORDERED: Aspirin 81 mg Enteric Coated Tablet PO SCH ×2 (09:00)
[2023-01-29] MEDS: Sacubitril 24MG/Valsartan 26 MG TAB PO SCH ×2 (11:17→20:20)
[2023-01-29] MEDS: Dextrose 5% in Water 1,000 ML IV SCH ×2 (11:20→19:53)
[2023-01-29] MEDS: Carvedilol 6.25 MG TAB PO SCH ×2 (11:23→20:20)
[2023-01-29] MEDS: Cholecalciferol 1,000 UNITS (25 MCG) TAB PO SCH (11:31)
[2023-01-29] MEDS: Finasteride 5 MG TAB PO SCH (11:33)
[2023-01-29] MEDS: Bupropion 150 MG XL TAB PO SCH ×2 (11:36→11:41)
[2023-01-29] MEDS: Trospium 20 MG TAB PO SCH ×2 (11:38→20:20)
[2023-01-29] MEDS: Famotidine 20 MG TAB PO SCH (11:38)
[2023-01-29] MEDS: Clopidogrel Bisulfate 75 MG TAB PO SCH (11:39)
[2023-01-29] MEDS: Amiodarone 200 MG TAB PO SCH ×2 (11:41→20:20)
[2023-01-29] MEDS: Tamsulosin HCl 0.4 MG CAP PO SCH (11:42)
[2023-01-29] MEDS: Ezetimibe 10 MG TAB PO SCH (11:42)
[2023-01-29] MEDS ORDERED: Aspirin Chewable 81 MG TAB PO SCH (11:45)
[2023-01-29] MEDS: Alogliptin 25 MG TAB PO SCH (11:52)
[2023-01-29] MEDS: Atorvastatin Calcium 40 MG TAB PO SCH (20:20)
[2023-01-29] MEDS: Latanoprost 0.005% Ophth Soln 2.5 ml Bottle EA EYE SCH (20:21)
[2023-01-29] MEDS ORDERED: Atorvastatin Calcium 40 MG TAB PO SCH (21:00)
[2023-01-30] MEDS ORDERED: Glimepiride 4 MG TAB PO SCH (07:30)
[2023-01-30] MEDS: Trospium 20 MG TAB PO SCH (08:48)
[2023-01-30] MEDS: Famotidine 20 MG TAB PO SCH (08:49)
[2023-01-30] MEDS: Tamsulosin HCl 0.4 MG CAP PO SCH (08:49)
[2023-01-30] MEDS: Ezetimibe 10 MG TAB PO SCH (08:49)
[2023-01-30] MEDS: Amiodarone 200 MG TAB PO SCH (08:49)
[2023-01-30] MEDS: Carvedilol 6.25 MG TAB PO SCH (08:49)
[2023-01-30] MEDS: Sacubitril 24MG/Valsartan 26 MG TAB PO SCH (08:50)
[2023-01-30] MEDS: Clopidogrel Bisulfate 75 MG TAB PO SCH (08:50)
[2023-01-30] MEDS: Finasteride 5 MG TAB PO SCH (08:50)
[2023-01-30] MEDS: Alogliptin 25 MG TAB PO SCH (08:51)
[2023-01-30] MEDS: Cholecalciferol 1,000 UNITS (25 MCG) TAB PO SCH (08:51)
[2023-01-30] MEDS ORDERED: Aspirin Chewable 81 MG TAB PO SCH (09:00)
[2023-01-30 09:05] VITALS: TEMP 98
[2023-01-30 16:26] VITALS: BP 107/52
== END 2023-01-30 17:30 | disposition home or self-care (01) | DRG 280 ==
LOC: ERS 21:50 → ERHOLD 01-28 00:49 → 2NO 01-28 03:11 → OBSVTOIN 01-28 03:15
PROVIDERS: ADMIT Internal Medicine; ATTEND Hospitalist
DX: I21.4 Non-ST elevation (NSTEMI) myocardial infarction (principal); G93.41 Metabolic encephalopathy; J96.01 Acute respiratory failure with hypoxia; I50.22 Chronic systolic (congestive) heart failure; M62.82 Rhabdomyolysis; N17.9 Acute kidney failure, unspecified; I13.0 Hypertensive heart and chronic kidney disease with heart failure and stage 1 through stage 4 chronic kidney disease, or unspecified chronic kidney disease; E04.2 Nontoxic multinodular goiter; R77.8 Other specified abnormalities of plasma proteins; I25.10 Atherosclerotic heart disease of native coronary artery without angina pectoris; J45.909 Unspecified asthma, uncomplicated; H40.9 Unspecified glaucoma; J44.9 Chronic obstructive pulmonary disease, unspecified; E11.22 Type 2 diabetes mellitus with diabetic chronic kidney disease; R25.1 Tremor, unspecified; N18.9 Chronic kidney disease, unspecified; Z79.82 Long term (current) use of aspirin; Z79.899 Other long term (current) drug therapy; Z95.1 Presence of aortocoronary bypass graft; Z95.818 Presence of other cardiac implants and grafts; Z87.891 Personal history of nicotine dependence
CPT/HCPCS: 36415; 36416; 51701; 70450; 70544; 70551; 71045; 71250; 71275; 76536; 76700; 80048; 80053; 80061; 80306; 80307; 81001; 82550; 83036; 83690; 83735; 84145; 84484; 85025; 87040; 93005; 93010; 93306; 96360; 96361; G0378; J1650; J1815; J7050; J7070; Q9967